=== PATIENT | female | born 1990 | race Caucasian/White ===

== ENCOUNTER 2021-06-21 12:43 | Outpatient (CLI) | payer BC, SELFPAY ==
--- NOTE | ~2021-06-21 | US_ITS ---
EXAMINATION: US OB /maternal detail EXAM DATE: 06/21/2021 13:16 INDICATION: anatomy. 2nd trimester. TECHNIQUE: Pelvic obstetrical transabdominal sonogram was performed by a technologist. There are mu ltiple grayscale and Doppler images available for interpretation. There are no earlier studies of th is gestation for comparison. FINDINGS: There is a single fetus identified in vertex presentation with a heart rate of 153 beats pe r minute. The placenta is located in the posterior position. There is no sonographic evidence of ret roplacental hemorrhage identified. There is subjectively expected amount of amniotic fluid. BIOMETRIC DATA: Biparietal diameter (BPD): 4.1 cm ----------------> 18 weeks 3 days. Head circumference (HC): 15.4 cm ----------------> 18 weeks 2 days. Abdominal circumference (AC): 13.3 cm ----------> 18 weeks 6 days. Femur length (FL): 2.6 cm --------------------------> 17 weeks 5 days. These measurements are concordant. HC/AC ratio is 1.15 (The 5th -- 95th percentile range is 1.08-1.27. Estimated weight is 234 g +/- 35 g. estimated gestational age based on measurements from this exam is 18 weeks 2 days, with an estimated date of delivery (SULEMAN-AUA) 11/20/2021. There is no cli nical gestation age or earlier ultrasound of this available to determine weight perce ntile. ANATOMIC SURVEY: The following anatomy is identified and is sonographically normal in appearance: Cerebral ventricles Cavum septum pellucidum Cerebellum Cisterna magna Nuchal fold CTL-spine Four-chamber heart Diaphragm Stomach Bladder Three-vessel cord Cord insertion Extremities Nose/lips The following anatomy was not well visualized and not evaluated: Cardiac outflow tracts, kidney s. IMPRESSION: 1. Single fetus in vertex presentation with heart rate 153 beats per minute. 2. Estimated gestational age by this ultrasound 18 weeks 2 days with SULEMAN 11/20. 3. Incomplete anatomic survey. Visualized anatomy normal. Reviewed, dictated and finalized at location B.
== END 2021-06-21 12:44 ==
PROVIDERS: Visit Provider Obstetrics & Gynecology Gynecology
DX: Z36.9 Encounter for antenatal screening, unspecified (principal); Z3A.18 18 weeks gestation of pregnancy
CPT/HCPCS: 76805

== ENCOUNTER → 2021-07-23 12:58 | Outpatient (CLI) | payer BC, MEDICAID, SELFPAY ==
--- NOTE | ~2021-07-23 | US_ITS ---
EXAMINATION: US OB limited DATE: 07/23/2021 13:22 INDICATION: Second trimester anatomic survey follow-up TECHNIQUE: Real-time ultrasound of the pelvis was performed. The interpreting radiologist was not pre sent for the study. COMPARISON: 06/21/2021 FINDINGS: There is a single living fetus in vertex presentation. The placenta is posterior and 5.1 cm from the internal cervical os. cardiac activity and movement are noted. heart rate is 149 beats per minute (bpm). The amniotic fluid index is subjectively normal. The heart and kidneys appear normal. IMPRESSION: 1. Single living fetus in vertex presentation. 2. heart and kidneys appear normal. Reviewed, dictated and finalized at location A.
== END ==
PROVIDERS: PCP Obstetrics & Gynecology Gynecology; Visit Provider Obstetrics & Gynecology Gynecology
DX: Z36.2 Encounter for other antenatal screening follow-up (principal)
CPT/HCPCS: 76815

== ENCOUNTER 2021-08-02 12:49 | Emergency (ER) | payer MEDICAID, SELFPAY ==
[2021-08-02 13:07] VITALS: BP 158/99; PULSE 98; RESP 16; TEMP 36.3; O2SAT 100
[2021-08-02 13:48] LABS: Appearance Urine Clear (Clear); Bilirubin Urine Negative (Negative); Blood Urine Negative (Negative); Color Urine Yellow (Yellow); Glucose Urine UA Negative (Negative); Ketones Urine Negative (Negative); Leukocyte Esterase Ur Negative LEU/UL (Negative); Nitrate Urine Negative (Negative); Protein Urine Negative (Negative); Specific Grav Ur >= 1.030 (1.001-1.035); Urobilinogen Urine 0.2 mg/dL (<2.0)
[2021-08-02 14:06] LABS: Add Urine Microscopic? NO
--- NOTE | 2021-08-02 15:33 | ED.BACK ---
HPI - Back Pain/Injury General Chief Complaint: Back Pain/Injury Stated Complaint: right side back pain- 24 weeks preg Time Seen by Provider: 08/02/21 15:21 Related Data Allergies Allergy/AdvReac Type Severity Reaction Status Date / Time No Known Allergies Allergy Unknown Verified 07/06/18 19:15 [facility] Family History Family History (Updated 10/20/15 @ 23:19 by DOCTOR UNKNOWN) Father Hypertension Mother Hypertension Grandparent Family history of elevated blood lipids Family history of malignant neoplasm of breast Diabetes mellitus Social History Social History Second hand tobacco smoke exposure: No Alcohol intake: never Course Vital Signs Vital signs: Vital Signs Temperature 36.3 C L 08/02/21 13:07 Pulse Rate 98 08/02/21 13:07 Respiratory Rate 16 08/02/21 13:07 Blood Pressure 158/99 H 08/02/21 13:07 Pulse Oximetry 100 08/02/21 13:07 Temperature 36.3 C L 08/02/21 13:07 Pulse Rate 98 08/02/21 13:07 Respiratory Rate 16 08/02/21 13:07 Blood Pressure 158/99 H 08/02/21 13:07 Pulse Oximetry 100 08/02/21 13:07 MDM - Back Pain/Injury Lab Data Labs: Lab Results 08/02/21 Range/Units 13:38 Urine Color Yellow (Yellow) Urine Appearance Clear (Clear) Urine pH 6.0 (5.0-9.0) Ur Specific [place] >= 1.030 (1.001-1.035) Urine Protein Negative (Negative) mg/dL Urine Glucose (UA) Negative (Negative) mg/dL Urine Ketones Negative (Negative) mg/dL Ur Blood (Man) Negative (Negative) Urine Nitrate Negative (Negative) Urine Bilirubin Negative (Negative) Urine Urobilinogen 0.2 (<2.0) mg/dL Leukocyte Esterase Rfl Negative (Negative) MARGO/UL UCG Bedside Result Positive Reference Range: Negative
== END 2021-08-02 15:50 | disposition home or self-care (01) ==
PROVIDERS: Emergency Provider Emergency Medicine; PCP Obstetrics & Gynecology Gynecology
DX: O26.892 Other specified pregnancy related conditions, second trimester (principal); M54.50 Low back pain, unspecified; Z3A.24 24 weeks gestation of pregnancy
CPT/HCPCS: 81003; 81025; 99283

== ENCOUNTER 2021-09-25 12:50 | Outpatient (CLI) | payer OTHER, SELFPAY ==
--- NOTE | ~2021-09-25 | US_ITS ---
EXAMINATION: US OB follow up DATE: 09/25/2021 13:26 INDICATION: Gestational size greater than dates. TECHNIQUE: Real-time transabdominal obstetric ultrasound. FINDINGS: Comparison to multiple prior studies sequentially, with oldest reviewed study dated 022. There is a single living fetus in vertex presentation. The placenta is posterior without placenta pr evia. SP is normal measuring 13.6 cm. cardiac activity and movement is noted with a heart rate of 135 beats per minute. T he amniotic fluid volume is normal. The following biometric data were obtained: BPD: 82mm corresponds to gestational age 33 weeks 1 days. Head circumference: 298mm corresponds to gestational age 33 weeks 0 days. Abdominal circumference: 302mm corresponds to gestational age 34 weeks 1 days. Femur length: 63mm corresponds to gestational age 32 weeks 4 days. Estimated weight: 2204grams +/- 331grams, 84.4% by Hadlock method.] IMPRESSION: 1. Single living intrauterine in vertex presentation with an estimated gestational age of 32 weeks 0 days by inititial ultrasound. 2. Normal placenta. Reviewed, dictated and finalized at location A. IMPRESSION: 1. Single living intrauterine in vertex presentation with an estimat ed gestational age of 32 weeks 0 days by inititial ultrasound. 2. Normal placenta.
== END 2021-09-25 12:51 | disposition home or self-care (01) ==
PROVIDERS: PCP Obstetrics & Gynecology Gynecology; Visit Provider Advanced Practice Midwife
DX: O36.63X0 Maternal care for excessive fetal growth, third trimester, not applicable or unspecified (principal); E03.9 Hypothyroidism, unspecified; Z3A.32 32 weeks gestation of pregnancy
CPT/HCPCS: 76816

== ENCOUNTER 2021-10-25 12:55 | Outpatient (CLI) | payer OTHER, SELFPAY ==
--- NOTE | ~2021-10-25 | US_ITS ---
EXAMINATION: US OB follow up DATE: 10/25/2021 13:41 INDICATION: Estimated size greater than expected for estimated gestational age. TECHNIQUE: Real-time ultrasound of the pelvis was performed. The interpreting radiologist was not pre sent for the study. COMPARISON: None. FINDINGS: There is a single living fetus in vertex presentation. The placenta is posterior fundal. heart rate is 143 beats per minute (bpm). The amniotic fluid index is 9.1 cm, which is normal (5th%-95%: 7.7-24.9 cm at 36 weeks estimated gestational age) The following biometric data were obtained: BPD: 9.3 cm -> 37 weeks 6 days Head circumference: 35.6 cm -> 37 weeks 0 days Abdominal circumference: 33.6 cm -> 37 weeks 4 days Femur length: 7.1 cm -> 36 weeks 1 days These measurements are concordant. Head circumference to abdominal circumference ratio: 0.97 (normal range 0.92-1.05). Estimated weight: 3137 g (+/-) 471 g or 6 lbs. 15 oz. (+/-) 1 lbs. 1 oz. IMPRESSION: 1. Single living fetus in vertex presentation with heart rate of 143 bpm. 2. Normal amniotic fluid index of 9.1 cm. 3. Estimated weight is 79th percentile by Hadlock criteria when 11/21/2021 is used as the estima amber date of delivery (SULEMAN). Please correlate with clinical information or earlier ultrasounds for mos t accurate SULEMAN. Reviewed, dictated and finalized at location A. IMPRESSION: 1. Single living fetus in vertex presentation with heart rate of 143 bpm. 2. Normal amniotic fluid index of 9.1 cm. 3. Estimated weight is 79th percentile by Hadlock criteria when 11/21/2021 is used as the estimated date of delivery (SULEMAN). Please correlate with clinica l information or earlier ultrasounds for most accurate SULEMAN.
== END 2021-10-25 12:56 | disposition home or self-care (01) ==
PROVIDERS: PCP Obstetrics & Gynecology Gynecology; Visit Provider Obstetrics & Gynecology Gynecology
DX: O24.414 Gestational diabetes mellitus in pregnancy, insulin controlled (principal); Z79.4 Long term (current) use of insulin; Z3A.00 Weeks of gestation of pregnancy not specified
CPT/HCPCS: 76816

== ENCOUNTER 2021-10-31 06:02 | Inpatient (IN) | payer OTHER, SELFPAY ==
[2021-10-31] VITALS (176 sets, daily range): BP systolic 105–154; BP diastolic 58–94; PULSE 25–281; TEMP 36.2–38.3; O2SAT 80–100; BMI 40.6
[2021-10-31] MEDS: LACTATED RINGERS 1,000 ML 125 ML IV CONT ×2 (07:37→11:30)
[2021-10-31] MEDS: OXYTOCIN 30 UNITS/NS 500 ML 30 UNITS/500 ML BAG IV CONT (07:38)
[2021-10-31 07:41] LABS: Basophils Percent Auto 0.2 % (0.2-1.2); Eosinophils Absolute Auto 0.1 K/mm3 (0-0.3); Eosinophils Percent Auto 0.6 % (0-4.4); Hematocrit 36.7 % (37.0-47.0); Hemoglobin 12.4 g/dL (12.0-15.0); Immature Granulocyte Absolute 0.06 K/mm3 (0.00-0.031); Immature Granulocyte Percent A 0.5 % (0-0.5); Lymphocytes Absolute Auto 2.54 K/mm3 (0.9-3.2); Lymphocytes Percent Auto 19.4 % (18.3-44.2); Mean Corpuscular HGB Conc 33.8 g/dl (32-36); Mean Corpuscular Volume 88.6 fl (80-100); Mean Platelet Volume 10.2 fl (7.4-10.4); Monocytes Absolute Auto 0.8 K/mm3 (0.1-0.6); Monocytes Percent Auto 5.9 % (2.6-8.5); Neutrophils Absolute Auto 9.6 K/mm3 (1.3-6.7); Neutrophils Percent Auto 73.4 % (45.5-73.1); Platelet Count Result 256 k/mm3 (150-375); Red Blood Count 4.14 M/mm3 (4.2-5.4); Red Cell Distribution Width 13.2 % (11.5-14.5); White Blood Count 13.1 K/mm3 (4.5-10.0)
--- NOTE | 2021-10-31 07:46 | WPDOBADMIT ---
Obstetrics - Admit Note Admission Note: record reviewed. No pertinent additions to the history and/or any subsequent changes in the physical findings that are not consistent with the expected course of the were found. Additions to the history and/or subsequent changes in the physical findings follow. NST on admit is reactive.
--- NOTE | 2021-10-31 07:47 | PM.OBPNLAB ---
Pain Control Date/time seen: 10/31/21 07:3 Comments: Denies pain. Pelvic Exam Dilation (cm): 3 Effacement (%): 60 station: -3 Amniotic membrane status: Ruptured Contractions Monitor mode: External Contraction pattern: Irregular Contraction phase: Resting Status status: Category l Assessment and Plan Assessment: induction ongoing Plan: continuous present management Comments: Discussed plan of care with patient and her partner. Discussed methods of induction including oxytocin administration and amniotomy. Mel is agreeable to both interventions. Amniotomy performed with moderate amount of clear amniotic fluid returned. Plan to start Pitocin and increase as needed to achieve adequate contraction pattern. She plans an epidural for pain control.
--- NOTE | 2021-10-31 07:50 | PM.IMHP ---
H&P: HPI History of Present Illness Date/Time: 10/31/21 07:50 Chief Complaint: IOL Review of Systems Review of Systems: All systems reviewed & are unremarkable except as noted in HPI and below Constitutional: Constitutional: Reports no additional constitutional complaints PMFSH Family History Family History Father Hypertension Mother Hypertension Grandparent Family history of elevated blood lipids Family history of malignant neoplasm of breast Diabetes mellitus Social History Social History Years smoked: 15 Smoking status: Former smoker Tobacco type: cigarettes Second hand tobacco smoke exposure: No Alcohol intake: never Substance use: never Spiritual care concerns: No Comments IVF Hx ectopic x 4. Bilateral salpingectomy. 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 Plan PP Colposcopy Hx Chlamydia O+/NR/Hep B Neg/RI/Hep C neg/HIV neg/ GBS neg Family History Father Hypertension Mother Hypertension Grandparent Family history of elevated blood lipids Family history of malignant neoplasm of breast Diabetes mellitus Social History Years smoked: 15 Smoking status: Former smoker Tobacco type: cigarettes Second hand tobacco smoke exposure: No Alcohol intake: never Substance use: never Spiritual care concerns: No Female Reproductive History Menstrual Total pregnancies: 6 Premature: 0 Past History Past medical history: gHTN GDMA2. history: Hx Preeclampsia in G1. Past surgical history: Ectopic x 4. Bilateral salpingectomy. Meds Home Medications and Allergies Home Medications Medication Instructions Recorded Confirmed Type Humulin U Insulin 81 unit subcut HS Gestational 10/25/21 10/25/21 History Diabetes levothyroxine 75 mcg tablet 25 mcg PO DAILY 10/25/21 10/31/21 History prenat.vits,lea,[id number] 1 tablet PO DAILY 10/25/21 10/25/21 History Allergies Allergy/AdvReac Type Severity Reaction Status Date / Time No Known Allergies Allergy Unknown Verified 07/06/18 19:15 Vital Signs Vital Signs - 24 hr 10/31/21 07:06 10/31/21 07:47 Pulse Rate 84 Blood Pressure 144/84 H Oxygen Delivery Room Air Exam Const: General: comfortable and no acute distress Eyes: General: appearance normal, both eyes and all related structures Resp: Effort & Inspection: normal respiratory effort Auscultation: clear to auscultation bilaterally Cardio: Rate: regular rate Rhythm: regular rhythm GI: GI Palp: Yes Soft to palpation : General: Yes bladder normal to palpation External Female Exam: normal external appearance Skin: General skin exam: normal color Neuro: General: gait normal Extrem: General: normal to inspection Psych: Mental Status: mental status grossly normal Affect: normal affect Assessment and Plan Assessment and plan (1) : Code(s): Z34.90 - Encounter for supervision of normal , unspecified, unspecified trimester Status: Acute (2) Gestational hypertension: Code(s): O13.9 - Gestational [-induced] hypertension without significant proteinuria, unspecified trimester Status: Acute (3) Gestational diabetes mellitus (GDM) affecting : Code(s): O24.419 - Gestational diabetes mellitus in , unspecified control Status: Acute Plan gHTN GDMA2. IUP at 37 weeks. Induction of labor.
[2021-10-31 07:53] LABS: Alanine Aminotransferase 14 U/L (6-35); Albumin Level 3.1 g/dL (3.5-5.1); Alkaline Phosphatase 100 U/L (38-126); Anion Gap 10 mmol/L (8-16); Aspartate Amino Transferase 19 U/L (14-36); Bilirubin,Total 0.2 mg/dL (0.2-1.3); Blood Urea Nitrogen 9 mg/dL (7-17); Calcium 8.6 mg/dL (8.4-10.2); Carbon Dioxide 21 mmol/L (22-30); Chloride 103 mmol/L (98-107); Estimated CRCL calculation 116 ml/min; Estimated Glomerular Filt Rate > 60; Glucose 148 mg/dL (65-110); Potassium 3.6 mmol/L (3.4-5.0); Sodium 134 mmol/L (137-145)
[2021-10-31 08:00] LABS: Amphetamine Screen Urine Negative (Negative); Barbiturate Screen Urine Negative (Negative); Benzodiazepines Screen Urine Negative (Negative); Cannabinoid Screen Urine Positive (Negative); Cocaine Screen Urine Negative (Negative); Methadone Screen Urine Negative (Negative); Opiate Screen Urine Negative (Negative); Phencyclidine Screen Urine Negative (Negative)
[2021-10-31 08:18] LABS: Uric Acid 6.2 mg/dL (2.5-7.5)
--- NOTE | 2021-10-31 12:00 | WPDANESEPPF ---
Anes - Initial Pre Proc Eval Procedure: labor epidural Date/Time: 10/31/21 12:00 Surgeon: Susan Velarde MD Pre Op Diagnosis: labor pain Pre Op Diagnosis: iol Patient Data Age: 30 Gender: F Height: 1.6 m Weight: 104 kg Last Vital Signs Pulse 79 10/31/21 11:59 BP 134/67 10/31/21 11:59 Pulse Ox 100 10/31/21 11:55 O2 Del Method Room Air 10/31/21 07:06 Allergies Allergy/AdvReac Type Severity Reaction Status Date / Time No Known Allergies Allergy Unknown Verified 07/06/18 19:15 Home Medications Medication Instructions Recorded Confirmed Type Humulin U Insulin 81 unit subcut HS Gestational 10/25/21 10/25/21 History Diabetes levothyroxine 75 mcg tablet 25 mcg PO DAILY 10/25/21 10/31/21 History prenat.vits,lea,[id number] 1 tablet PO DAILY 10/25/21 10/25/21 History Laboratory Tests 10/31/21 10/31/21 10/31/21 07:33 07:33 07:33 WBC 13.1 K/mm3 H K/mm3 (4.5-10.0) RBC 4.14 M/mm3 L M/mm3 (4.2-5.4) Hgb 12.4 g/dL g/dL (12.0-15.0) Hct 36.7 % L % (37.0-47.0) MCV 88.6 fl fl (80-100) MCH 30.0 pg pg (26-34) MCHC 33.8 g/dl g/dl (32-36) RDW 13.2 % % (11.5-14.5) Plt Count 256 k/mm3 k/mm3 (150-375) MPV 10.2 fl fl (7.4-10.4) Immature Gran % (Auto) 0.5 % % (0-0.5) Neut % (Auto) 73.4 % H % (45.5-73.1) Lymph % (Auto) 19.4 % % (18.3-44.2) [place] % (Auto) 5.9 % % (2.6-8.5) Eos % (Auto) 0.6 % % (0-4.4) Baso % (Auto) 0.2 % % (0.2-1.2) Lymph # (Auto) 2.54 K/mm3 K/mm3 (0.9-3.2) [place] # (Auto) 0.8 K/mm3 H K/mm3 (0.1-0.6) Eos # (Auto) 0.1 K/mm3 K/mm3 (0-0.3) Baso # (Auto) 0.0 K/mm3 K/mm3 (0.0-0.1) Abs Immat Gran (auto) 0.06 K/mm3 H K/mm3 (0.00-0.031) Absolute Neuts (auto) 9.6 K/mm3 H K/mm3 (1.3-6.7) Absolute Nucleated RBC 0.0 K/mm3 K/mm3 (0.0-0.012) Nucleated RBC % 0.0 % % (0.0-0.2) Sodium Potassium Chloride Carbon Dioxide Anion Gap BUN Creatinine Estim Creat Clear Calc Estimated GFR Glucose Uric Acid Calcium Total Bilirubin AST ALT Alkaline Phosphatase Total Protein Albumin Urine Opiates Screen Urine Methadone Screen Ur Barbiturates Screen Ur Phencyclidine Scrn Ur Amphetamine Screen U Benzodiazepines Scrn Urine Cocaine Screen U Cannabinoids Screen RPR Pending Blood Type A Positive Antibody Screen Negative 10/31/21 10/31/21 10/31/21 07:33 07:33 07:33 WBC RBC Hgb Hct MCV MCH MCHC RDW Plt Count MPV Immature Gran % (Auto) Neut % (Auto) Lymph % (Auto) [place] % (Auto) Eos % (Auto) Baso % (Auto) Lymph # (Auto) [place] # (Auto) Eos # (Auto) Baso # (Auto) Abs Immat Gran (auto) Absolute Neuts (auto) Absolute Nucleated RBC Nucleated RBC % Sodium 134 mmol/L L mmol/L (137-145) Potassium 3.6 mmol/L mmol/L (3.4-5.0) Chloride 103 mmol/L mmol/L (98-107) Carbon Dioxide 21 mmol/L L mmol/L (22-30) Anion Gap 10 mmol/L mmol/L (8-16) BUN 9 mg/dL mg/dL (7-17) Creatinine 0.70 mg/dL mg/dL (0.7-1.0) Estim Creat Clear Calc 116 ml/min ml/min Estimated GFR > 60 (59 - ) Glucose 148 mg/dL H mg/dL
[2021-10-31 12:11] LABS: Rapid Plasma Reagin Non-Reactive (NonReactive)
[2021-10-31 12:42] LABS: Glucose Point of Care 80 mg/dl (65-105)
[2021-10-31 15:18] LABS: Glucose Point of Care 83 mg/dl (65-105)
[2021-10-31] MEDS: ONDANSETRON INJ 4 MG/2 ML VIAL IV PUSH (16:19)
--- NOTE | 2021-10-31 17:26 | PM.OBPNLAB ---
Pain Control Date/time seen: 10/31/21 17:20 Pain control: tolerating well and epidural Pelvic Exam Dilation (cm): 7 Effacement (%): 90 station: -2 Amniotic membrane status: Ruptured Contractions Monitor mode: Internal Contraction frequency: 3 (2-3) Contraction duration: 60 (60-90) Contraction pattern: Regular Contraction phase: Resting Status status: Category l Assessment and Plan Assessment: induction ongoing Plan: continuous present management Comments: IUPC flushed and zeroed but resting tone remained >20. Uterine resting tone palpates soft. RN having difficulty tracing FHTs in upright positions. Discussed recommendation to replace IUPC and place FSE. Pt agrees. IUPC removed and replaced. New IUPC resting tone WNL. FSE placed. Pt repositioned to high fowlers. Recommend frequent repositioning to facilitate optimal position. Plan to increase oxytocin PRN to achieve adequate contraction pattern. Anticipate vaginal .
[2021-10-31 17:33] LABS: Glucose Point of Care 90 mg/dl (65-105)
[2021-10-31 20:02] LABS: Glucose Point of Care 78 mg/dl (65-105)
--- NOTE | 2021-10-31 21:59 | PM.OBPRVD ---
OB - Delivery Note Procedure Delivery date: 10/31/21 Procedure: Vaginal . Events: Gestational Diabetes (GDMA2.) and Gestational Hypertension Induction method: AROM and Per Pitocin Protocol Delivery monitor: External FHT, External Uterine, Internal FHT and Internal Uterine Route of delivery: Episiotomy description: None Laceration Description: None Specimen: Yes Quantitative Blood Loss (ml): 450 Anesthesia type: Epidural Disposition: Floor
[2021-10-31] MEDS: OXYTOCIN 30 UNITS/NS 500 ML 30 UNITS/500 ML BAG 125 UNITS IV CONT (22:08)
--- NOTE | 2021-10-31 22:12 | PM.OBPRVD ---
OB - Delivery Note Procedure Delivery date: 10/31/21 Procedure: Vaginal Events: Gestational Diabetes (GDMA2.) and Gestational Hypertension Induction method: AROM and Per Pitocin Protocol Delivery monitor: External FHT, External Uterine, Internal FHT and Internal Uterine Route of delivery: Laceration Description: None Specimen: Yes Quantitative Blood Loss (ml): 450 Anesthesia type: Epidural Disposition: Floor Complications: Shoulder Dystocia Narrative: Mel progressed to complete dilation and began pushing with contractions. CNM to hospital and patient continued pushing. She made good progress and there was steady descent. The head came to a crown. The entire head delivered with 4-5 separate maternal pushes in the MIREILLE position. There was no restitution noted at this point. A loose nuchal cord and a shoulder dystocia were identified. The patient was assisted into Cristian position and maternal expulsive efforts were resumed but not successful. Suprapubic pressure was called for and applied towards the maternal left hip. There was slight descent of the fetus with this maneuver. After 30 seconds, CNM attempted to grasp the posterior (right) arm. CNM unable to palpate the arm below the mid humerus. Grasped the right axilla and gentle traction applied. The posterior shoulder then had good descent and the rotated in a clockwise manner and delivered easily. The was placed on the maternal abdomen and was dried and stimulated. The cord was doubly clamped and cut and the was taken to the warmer for further care. Baby Date of : 10/31/21 Time of : 21:35 Weeks of gestation at delivery: 37 gender: Male Weight (pounds): 7 Weight (ounces): 9 presentation: vertex position: Right Occiput Anterior Placenta delivery description: Spontaneous Cord Vessel Description: 3 Vessels and Clamped/Cut score one minute: 4 score five minutes: 8
--- NOTE | 2021-10-31 22:33 | PM.DS ---
DS: Admitting Diagnosis Discharge Date 11/02/21 Admitting Diagnosis IUP at 37 weeks. gHTN GDMA2 Hypothyroidism DS: Discharge Diagnosis Discharge Diagnosis Plan s/p Vaginal . gHTN GDMA2 / Breast pumping DS: Summary Hospital Course Reason for hospitalization: Childbirth Hospital Course: Uncomplicated. Status at Discharge Overall status at discharge: patient is progressing back to baseline Time Spent with Patient Time attestation: Total time spent providing and/or coordinating discharge services: Exam Const: General: no acute distress Resp: Effort & Inspection: normal respiratory effort Cardio: Rate: regular rate Rhythm: regular rhythm : External Female Exam: normal external appearance Skin: General skin exam: normal color Neuro: General: gait normal Extrem: General: normal to inspection Psych: Mental Status: mental status grossly normal Affect: normal affect DS: Data Data Completed and Pending Labs on day of discharge: Labs from last 24 hours 10/31/21 10/31/21 10/31/21 19:58 17:30 15:13 WBC RBC Hgb Hct MCV MCH MCHC RDW Plt Count MPV Immature Gran % (Auto) Neut % (Auto) Lymph % (Auto) [place] % (Auto) Eos % (Auto) Baso % (Auto) Lymph # (Auto) [place] # (Auto) Eos # (Auto) Baso # (Auto) Abs Immat Gran (auto) Absolute Neuts (auto) Absolute Nucleated RBC Nucleated RBC % Sodium Potassium Chloride Carbon Dioxide Anion Gap BUN Creatinine Estim Creat Clear Calc Estimated GFR Glucose POC Capillary Glucose 78 90 83 Uric Acid Calcium Total Bilirubin AST ALT Alkaline Phosphatase Total Protein Albumin Urine Opiates Screen Urine Methadone Screen Ur Barbiturates Screen Ur Phencyclidine Scrn Ur Amphetamine Screen U Benzodiazepines Scrn Urine Cocaine Screen U Cannabinoids Screen RPR Blood Type Antibody Screen 10/31/21 10/31/21 10/31/21 12:37 07:33 07:33 WBC RBC Hgb Hct MCV MCH MCHC RDW Plt Count MPV Immature Gran % (Auto) Neut % (Auto) Lymph % (Auto) [place] % (Auto) Eos % (Auto) Baso % (Auto) Lymph # (Auto) [place] # (Auto) Eos # (Auto) Baso # (Auto) Abs Immat Gran (auto) Absolute Neuts (auto) Absolute Nucleated RBC Nucleated RBC % Sodium Potassium Chloride Carbon Dioxide Anion Gap BUN Creatinine Estim Creat Clear Calc Estimated GFR Glucose POC Capillary Glucose 80 Uric Acid 6.2 Calcium Total Bilirubin AST ALT Alkaline Phosphatase Total Protein Albumin Urine Opiates Screen Negative Urine Methadone Screen Negative Ur Barbiturates Screen Negative Ur Phencyclidine Scrn Negative Ur Amphetamine Screen Negative U Benzodiazepines Scrn Negative Urine Cocaine Screen Negative U Cannabinoids Screen Positive A RPR Blood Type Antibody Screen 10/31/21 10/31/21 10/31/21 07:33 07:33 07:33 WBC RBC Hgb Hct MCV MCH MCHC RDW Plt Count MPV Immature Gran % (Auto) Neut % (Auto) Lymph % (Auto) [place] % (Auto) Eos % (Auto) Baso % (Auto) Lymph # (Auto) [place] # (Auto) Eos # (Auto) Baso # (Auto) Abs Immat Gran (auto) Absolute Neuts (auto) Absolute Nucleated RBC Nucleated RBC % Sodium 134 L Potassium 3.6 Chloride 103 Carbon Dioxide 21 L Anion Gap 10 BUN 9 Creatinine 0.70 Estim Creat Clear Calc 116 Estimated GFR > 60 Glucose 148 H POC Capillary Glucose Uric Acid Calcium 8.6 Total Bilirubin 0.2 AST 19 ALT 14 Alkaline Phosphatase 100 Total Protein 6.0 L Albumin 3.1 L Urine Opiates Screen Urine Methadone Screen Ur Barbiturates Screen Ur Phencyclidine Scrn Ur Amphetam
[2021-10-31] MEDS: IBUPROFEN 600 MG TABLET PO (22:49)
[2021-11-01 00:01] VITALS: BP 116/69; PULSE 95
[2021-11-01 05:32] LABS: Hematocrit 32.5 % (37.0-47.0)
[2021-11-01 05:47] VITALS: BP 123/79; PULSE 90; RESP 18; TEMP 36.4; O2SAT 97
--- NOTE | 2021-11-01 07:40 | PM.OBPNVD ---
OB - PN: Subj Subjective Date/time seen: 11/01/21 07:40 Patient comments: no complaints and pain well controlled baby status: doing well OB - PN: Obj Data Labs CBC & Chem 7: 11/01/21 03:48 10/31/21 07:33 Labs: Laboratory Results - last 24 hr 10/31/21 10/31/21 10/31/21 07:33 07:33 07:33 WBC 13.1 H RBC 4.14 L Hgb 12.4 Hct 36.7 L MCV 88.6 MCH 30.0 MCHC 33.8 RDW 13.2 Plt Count 256 MPV 10.2 Immature Gran % (Auto) 0.5 Neut % (Auto) 73.4 H Lymph % (Auto) 19.4 Durham % (Auto) 5.9 Eos % (Auto) 0.6 Baso % (Auto) 0.2 Lymph # (Auto) 2.54 [place] # (Auto) 0.8 H Eos # (Auto) 0.1 Baso # (Auto) 0.0 Abs Immat Gran (auto) 0.06 H Absolute Neuts (auto) 9.6 H Absolute Nucleated RBC 0.0 Nucleated RBC % 0.0 Sodium Potassium Chloride Carbon Dioxide Anion Gap BUN Creatinine Estim Creat Clear Calc Estimated GFR Glucose POC Capillary Glucose Uric Acid Calcium Total Bilirubin AST ALT Alkaline Phosphatase Total Protein Albumin Urine Opiates Screen Urine Methadone Screen Ur Barbiturates Screen Ur Phencyclidine Scrn Ur Amphetamine Screen U Benzodiazepines Scrn Urine Cocaine Screen U Cannabinoids Screen RPR Non-reactive Blood Type A Positive Antibody Screen Negative 10/31/21 10/31/21 10/31/21 07:33 07:33 07:33 WBC RBC Hgb Hct MCV MCH MCHC RDW Plt Count MPV Immature Gran % (Auto) Neut % (Auto) Lymph % (Auto) Durham % (Auto) Eos % (Auto) Baso % (Auto) Lymph # (Auto) Durham # (Auto) Eos # (Auto) Baso # (Auto) Abs Immat Gran (auto) Absolute Neuts (auto) Absolute Nucleated RBC Nucleated RBC % Sodium 134 L Potassium 3.6 Chloride 103 Carbon Dioxide 21 L Anion Gap 10 BUN 9 Creatinine 0.70 Estim Creat Clear Calc 116 Estimated GFR > 60 Glucose 148 H POC Capillary Glucose Uric Acid 6.2 Calcium 8.6 Total Bilirubin 0.2 AST 19 ALT 14 Alkaline Phosphatase 100 Total Protein 6.0 L Albumin 3.1 L Urine Opiates Screen Negative Urine Methadone Screen Negative Ur Barbiturates Screen Negative Ur Phencyclidine Scrn Negative Ur Amphetamine Screen Negative U Benzodiazepines Scrn Negative Urine Cocaine Screen Negative U Cannabinoids Screen Positive A RPR Blood Type Antibody Screen 10/31/21 10/31/21 10/31/21 12:37 15:13 17:30 WBC RBC Hgb Hct MCV MCH MCHC RDW Plt Count MPV Immature Gran % (Auto) Neut % (Auto) Lymph % (Auto) Durham % (Auto) Eos % (Auto) Baso % (Auto) Lymph # (Auto) [place] # (Auto) Eos # (Auto) Baso # (Auto) Abs Immat Gran (auto) Absolute Neuts (auto) Absolute Nucleated RBC Nucleated RBC % Sodium Potassium Chloride Carbon Dioxide Anion Gap BUN Creatinine Estim Creat Clear Calc Estimated GFR Glucose POC Capillary Glucose 80 83 90 Uric Acid Calcium Total Bilirubin AST ALT Alkaline Phosphatase Total Protein Albumin Urine Opiates Screen Urine Methadone Screen Ur Barbiturates Screen Ur Phencyclidine Scrn Ur Amphetamine Screen U Benzodiazepines Scrn Urine Cocaine Screen U Cannabinoids Screen RPR Blood Type Antibody Screen 10/31/21 11/01/21 19:58 03:48 WBC RBC Hgb 11.0 L Hct 32.5 L MCV MCH MCHC RDW Plt Count MPV Immature Gran % (Auto) Neut % (Auto) Lymph % (Auto) Durham % (Auto) Eos % (Auto) Baso % (Auto) Lymph # (Auto) [place] # (Auto) Eos # (Auto) Baso # (Auto) Abs Immat Gran (auto) Absolute Neuts (auto) Absolute Nucleated RBC Nucleated RBC % Sodium Potassium Chloride Carbon Dioxide Anion G
[2021-11-01 08:55] VITALS: BP 105/72; PULSE 83; RESP 16; TEMP 36.2; O2SAT 99
[2021-11-01] MEDS: DOCUSATE SODIUM 100 MG CAPSULE PO ×2 (08:55→17:42)
[2021-11-01] MEDS: LEVOTHYROXINE SODIUM 25 MCG TABLET PO (08:55)
[2021-11-01] MEDS: MULTIVIT/MIN/PREN/FOL AC/IRON TABLET 1 TAB PO (08:55)
[2021-11-01] MEDS: IBUPROFEN 600 MG TABLET PO ×2 (12:20→23:48)
--- NOTE | 2021-11-01 12:40 | PC.NURSE ---
[phone] RN reported this morning that infant had not fed since , MCP performed circumcision on 37 EGA, the plan was for the family to go home today, and infant had been in level 2 nursery until 0300, then brought to mother. Introductions were made, then consulted with patient to assess needs related to . Primary RN is present in the room with family. Mother had been educated on needing to be supplemented so mother pumped her breast and collected 2mls of human milk to bottle feed her . Resources provided for inpatient and outpatient services using a resource guide and mom/baby guide. Mother voiced understanding of information and will call if there is a request for assistance. Reported to primary RN.
[2021-11-01 13:05] VITALS: BP 121/53; PULSE 98; RESP 18; TEMP 37; O2SAT 100
[2021-11-01 16:15] VITALS: BP 128/87; PULSE 91; RESP 16; TEMP 36.6; O2SAT 99
[2021-11-01 19:57] VITALS: BP 127/80; PULSE 90; RESP 18; TEMP 36.6; O2SAT 100
[2021-11-02 00:19] VITALS: BP 122/71
[2021-11-02 05:15] VITALS: BP 116/73
[2021-11-02] MEDS: LEVOTHYROXINE SODIUM 25 MCG TABLET PO (07:11)
[2021-11-02 07:15] LABS: Glucose Point of Care 101 mg/dl (65-105)
--- NOTE | 2021-11-02 07:56 | PM.OBPNVD ---
OB - PN: Subj Subjective Date/time seen: 11/02/21 07:56 Interval history: Mel is resting in bed. Has made several attempts at . Minimal pain. Small lochia. Infant in nursery under bili lights. Patient comments: no complaints [place] baby status: other (Not well. ) OB - PN: Obj Data Labs CBC & Chem 7: 11/01/21 03:48 10/31/21 07:33 Labs: Laboratory Results - last 24 hr 11/02/21 07:10 POC Capillary Glucose 101 OB - PN A/P Plan day: 2 Plan: discharge home Time Spent With Patient Time: Total time spent is greater than 50% in coordination of care (as documented) at patient's floor/unit and/or counseling patient: Review of Systems Review of Systems: All systems reviewed & are unremarkable except as noted in HPI and below Exam Narrative: Alert and oriented. Mood is pleasant and cooperative. Urinating without difficulty. Denies passing any large clots. No perineal edema. Const: General: no acute distress Orientation/consciousness: patient oriented x3 Limitations: no limitations Resp: Effort & Inspection: normal respiratory effort Auscultation: clear to auscultation bilaterally Cardio: Rate: regular rate GI: Inspection: normal to inspection Neuro: General: patient oriented x3 Extrem: General: normal to inspection Psych: Appearance: grossly normal Mental Status: mental status grossly normal Affect: normal affect Thought process: Normal thought process present
[2021-11-02 08:25] VITALS: BP 131/77; PULSE 77; RESP 16; TEMP 36.3; O2SAT 100
[2021-11-02] MEDS: LANOLIN (LANSINOH) 7.5 GM CREAM 1 APPLIC TOPICAL (08:39)
[2021-11-02] MEDS: IBUPROFEN 600 MG TABLET PO (08:39)
[2021-11-02] MEDS: MULTIVIT/MIN/PREN/FOL AC/IRON TABLET 1 TAB PO (08:39)
--- NOTE | 2021-11-02 11:12 | PC.NURSE ---
0828 - 37 EGA infant is in the nursery with RN under phototherapy. was RN fed the bottle close to 0800.
[2021-11-02 11:58] VITALS: BP 116/73; PULSE 75; RESP 18; TEMP 36.4; O2SAT 99
[2021-11-02 15:30] VITALS: BP 131/86
--- NOTE | 2021-11-02 16:35 | PC.NURSE ---
Patient viewed the discharge video Mother & Baby Care, The First Two Weeks . Patient was given the opportunity and encouraged to ask questions. Patient verbalized understanding of information shared and has been given the mother/baby guide for home reference.
[2021-11-05 10:29] VITALS: BP 119/68; PULSE 80; RESP 20; TEMP 36.6; O2SAT 98
== END 2021-11-02 18:45 | disposition home or self-care (01) | DRG 560 ==
LOC: ANHLDR 22:39 → ANHOB2 11-01 10:06 → ANHLDR 11-05 10:49
PROVIDERS: Obstetrics & Gynecology Gynecology; Admitting Provider Advanced Practice Midwife; Visit Provider Advanced Practice Midwife
DX: O13.4 Gestational [pregnancy-induced] hypertension without significant proteinuria, complicating childbirth (principal); O69.81X0 Labor and delivery complicated by cord around neck, without compression, not applicable or unspecified; O24.429 Gestational diabetes mellitus in childbirth, unspecified control; O66.0 Obstructed labor due to shoulder dystocia; O99.284 Endocrine, nutritional and metabolic diseases complicating childbirth; E03.9 Hypothyroidism, unspecified; Z3A.37 37 weeks gestation of pregnancy; Z87.891 Personal history of nicotine dependence; Z37.0 Single live birth
CPT/HCPCS: 36415; 80053; 80307; 82948; 84550; 85014; 85018; 85025; 86592; 86850; 86900; 86901; 88307; A9270; J2405; J2590; J2795; J7120

== ENCOUNTER 2024-05-11 14:54 | Outpatient (CLI) | payer MEDICAID, SELFPAY ==
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
--- OUTSIDE RECORDS SUMMARY | 2024-05-11 15:01 | XMS_ITS | Referral Summary ---
Author Organization [facility] [employer] Address [address] [place] [address] Care Team Providers Care Assistant Casino Shift Manager Name Role Phone Unavailable Primary Care Provider Unavailabl e Source Comments [facility],non-owned Affiliates and Associated Physician Practices is amultiple site organization consisting of ambulatory clinics and hospital sitesin [place], [place], [place] and [place]. This disclosure is being madepursuant to the Care Everywhere program and may not contain all information available regarding this patient. Last updated 17.[facility] Allergies No known active allergies Medications * Be aware that medications may not be up to date on this document. Alwaysverify current medications with the patient. Medication Sig Dispensed Refills Start Date End Date Status oxyCODONE-acetaminophe n (PERCOCET) 5-325 MG tablet Take 1 Tab by mouth every 4 hours as needed for Pain. 20 Tab 0 10/27/2013 Active Social History Tobacco Use Types Packs/Day Years [...] Mass Index 24.8 10/27/2013 5:19 AM CDT Plan of Treatment Not on file Administered Medications
--- OUTSIDE RECORDS SUMMARY | 2024-05-11 15:01 | XMS_ITS | Clinical Summary ---
Author Organization [facility] [employer] Address [address] [place] [address] Care Team Providers Care Orthopedically Impaired Teacher Name Role Phone Unavailable Primary Care Provider Unavailabl e Source Comments [facility] [employer],non-owned Affiliates and Associated Physician Practices is amultiple site organization consisting of ambulatory clinics and hospital sitesin [place], [place] and [place]. This disclosure is being madepursuant to the Care Everywhere program and may not contain all information available regarding this patient. Last updated 17.[facility] [employer] Allergies No known active allergies Medications * [...] 10/27/2013 5:19 AM CDT Plan of Treatment Health Maintenance Due Date Last Done Comments PAP SMEAR 1989 HIV SCREENING 2004 HEPATITIS C SCREENING 12/24/2007 DTAP/TDAP/TD VACCINES (1 - Tdap) 2008 HEPATITIS B VACCINE (1 of 3 - 19+ 3-dose series) 2008 PNEUMOCOCCAL VACCINE (1 of 2 - PCV) 2008 COVID-19 VACCINE (1 - 2023-2 5 season) 2023 INFLUENZA VACCINE (#1) 2023 DEPRESSION SCREENING 03/24/2024 ZOSTER VACCINE (1 of 2) 12/29/2039 HIB VACCINE Aged Out No longer eligi ble based on patient's age to complete this topic HPV VACCINE Aged Out No longer eligi ble based on patient's age to complete this topic MENINGOCOCCAL (Group B) VACCINE Aged Out No longer eligible based on patient's age to complete this topic MENINGOCOCCAL VACCINE Aged Out No omar kimberlee eligible based on patient's age to complete this topic
--- OUTSIDE RECORDS SUMMARY | 2024-05-11 15:01 | XMS_ITS | Encounter Summary ---
Author Organization [facility] Address [address] [place] [address] Care Team Providers Care Test Boring Crew Chief Name Role Phone Unavailable Primary Care Provider Unavailabl e Encounter Details Date Type Department Care Team (Late st Contact Info) Description 02/14/2021 Lab Requisition [facility] [address] [place] [address] Social History Tobacco Use Types Packs/Day Years Used Date Smoking Tobacco: Every Day Alcohol Use Standard Drinks/Week Comments No 0 (1 standard drink = 0.6 oz pur e alcohol) Sex and Gender Information Value Date Recorded Sex Assigned at Not on file Gender Identity Not on file Sexual Orientation Not on file documented as of this encounter Plan of Treatment Not on file documented as of this encounter Procedures Procedure Name Priority Date/Time Associated Diagnosis Comments HCG BETA BLOOD QUANTITATIVE STAT 02/14/2021 12:23 PM PORTAL ARCHITECT documented in this encounter Results * HCG BETA BLOOD QUANTITATIVE (02/14/2021 12:23 PM PORTAL ARCHITECT) hCG Quantitative <1.20 mIU/mL 02/15/20 1:30 PM PORTAL ARCHITECT [facility] Blood BLOOD SPECIMEN / Unknown Venipuncture / Unknown 02/14/2021 12:23 PM PORTAL ARCHITECT 02/14/2021 12:23 PM PORTAL ARCHITECT Narrative [facility] - 02/14/2021 1:30 PM PORTAL ARCHITECT hCG Reference Range, mIU/mL: Males 0-2.0 Non [...] makes unlikely. LAB - CHEMISTRY [facility] [place] Organization Address City/State/ZIP Co de Phone Number [facility] [address] [place] [address] documented in this encounter Visit Diagnoses Not on filedocumented in this encounter
[2024-05-11 15:16] VITALS: BP 127/70; PULSE 91
[2024-05-11 15:18] LABS: Basophils Percent Auto 0.3 % (0.2-1.2); Eosinophils Absolute Auto 0.1 K/mm3 (0-0.3); Eosinophils Percent Auto 0.5 % (0-4.4); Hematocrit 39.5 % (37.0-47.0); Hemoglobin 13.2 g/dL (12.0-15.0); Immature Granulocyte Absolute 0.05 K/mm3 (0.00-0.031); Immature Granulocyte Percent A 0.4 % (0-0.5); Lymphocytes Absolute Auto 2.12 K/mm3 (0.9-3.2); Lymphocytes Percent Auto 14.9 % (18.3-44.2); Mean Corpuscular HGB Conc 33.4 g/dl (32-36); Mean Corpuscular Hemoglobin 30.6 pg (26-34); Mean Corpuscular Volume 91.4 fl (80-100); Mean Platelet Volume 9.5 fl (7.4-10.4); Monocytes Absolute Auto 0.7 K/mm3 (0.1-0.6); Monocytes Percent Auto 4.6 % (2.6-8.5); Neutrophils Absolute Auto 11.3 K/mm3 (1.3-6.7); Neutrophils Percent Auto 79.3 % (45.5-73.1); Platelet Count Result 253 k/mm3 (150-375); Red Blood Count 4.32 M/mm3 (4.2-5.4); White Blood Count 14.3 K/mm3 (4.5-10.0)
[2024-05-11 15:28] LABS: Alanine Aminotransferase 16 U/L (6-35); Albumin Level 3.6 g/dL (3.5-5.1); Alkaline Phosphatase 74 U/L (38-126); Anion Gap 9 mmol/L (4-12); Aspartate Amino Transferase 16 U/L (14-36); Bilirubin,Total 0.3 mg/dL (0.2-1.3); Blood Urea Nitrogen 10 mg/dL (7-17); Calcium 9.1 mg/dL (8.4-10.2); Carbon Dioxide 21 mmol/L (22-30); Chloride 105 mmol/L (98-107); Estimated Glomerular Filt Rate > 60; Glucose 123 mg/dL (65-110); Potassium 3.8 mmol/L (3.4-5.0); Sodium 135 mmol/L (137-145)
[2024-05-11 15:29] VITALS: BP 127/70
[2024-05-11 15:31] VITALS: BP 129/67; PULSE 89
[2024-05-11 15:43] LABS: Creatinine Urine 106.1 mg/dL; Total Protein Urine Random 19 mg/dL; Ur Ttl Prot Creatinine Ratio 0.18 mg/mg (0-0.20)
[2024-05-11 15:46] VITALS: BP 132/69; PULSE 88
[2024-05-11 16:00] VITALS: BMI 39.0
[2024-05-11 16:00] LABS: Add Urine Microscopic? YES; Appearance Urine Cloudy (Clear); Bacteria Urine 1+ /hpf; Bilirubin Urine Negative (Negative); Blood Urine Negative (Negative); Color Urine Yellow (Yellow); Glucose Urine UA Negative (Negative); Ketones Urine Negative (Negative); Leukocyte Esterase Ur Negative LEU/UL (Negative); Nitrate Urine Negative (Negative); Protein Urine Negative (Negative); RBC Urine 0-2 /hpf (0-2); Specific Grav Ur 1.023 (1.001-1.035); Squamous Epithelial Cell Urine Moderate /hpf (Few); Urobilinogen Urine 0.2 mg/dL (<2.0); WBC Urine 0-5 /hpf (0-3); pH Urine 5.5 (5.0-9.0)
--- NOTE | 2024-05-11 16:01 | PC.NURSE ---
Dr. Velarde notfied of vital signs and lab results, okay to discharge with 24 hour urine
== END 2024-05-11 16:01 | disposition home or self-care (01) ==
LOC: ANHOBOP 15:02 → ANHOBPP 15:02
PROVIDERS: Visit Provider Obstetrics & Gynecology Gynecology
DX: O13.9 Gestational [pregnancy-induced] hypertension without significant proteinuria, unspecified trimester (principal); Z3A.00 Weeks of gestation of pregnancy not specified
CPT/HCPCS: 36415; 80053; 81001; 82570; 84156; 84550; 85025; 99199

== ENCOUNTER 2024-05-12 15:02 | Outpatient (CLI) | payer MEDICAID, SELFPAY ==
--- OUTSIDE RECORDS SUMMARY | 2024-05-12 15:09 | XMS_ITS | Encounter Summary ---
Author Organization [facility] Address [address] [place] [address] Care Team Providers Care Alumni Coordinator Name Role Phone Unavailable Primary Care Provider Unavailabl e Encounter Details Date Type Department Care Team (Late st Contact Info) Description 02/14/2021 Lab Requisition [facility] [address] [place] [address] Social History Tobacco Use Types Packs/Day Years [...] BETA BLOOD QUANTITATIVE STAT 02/14/2021 12:23 PM HOOKING MACHINE OPERATOR documented in this encounter Results * HCG BETA BLOOD QUANTITATIVE (02/14/2021 12:23 PM HOOKING MACHINE OPERATOR) hCG Quantitative <1.20 mIU/mL 02/15/20 1:30 PM HOOKING MACHINE OPERATOR [facility] Blood BLOOD SPECIMEN / Unknown Venipuncture / Unknown 02/14/2021 12:23 PM HOOKING MACHINE OPERATOR 02/14/2021 12:23 PM HOOKING MACHINE OPERATOR Narrative [facility] - 02/14/2021 1:30 PM HOOKING MACHINE OPERATOR hCG Reference Range, mIU/mL: Males 0-2.0 Non [...] makes unlikely. LAB - CHEMISTRY [facility] Organization Address City/State/ZIP Co de Phone Number [facility] [address] [place] [address] documented in this encounter Visit Diagnoses Not on filedocumented in this encounter
--- OUTSIDE RECORDS SUMMARY | 2024-05-12 15:09 | XMS_ITS | Clinical Summary ---
Author Organization [facility] Address [address] [place] [address] Phone Care Team Providers Care Horticulture/Floriculture Teacher Name Role Phone Unavailable Primary Care Provider Unavailabl e Encounters Date Type Department Care Team Description 05/03/2024 1:00 PM RESIDENTIAL CASE MANAGER - 05/03/2024 11:59 PM RESIDENTIAL CASE MANAGER Hospital Encounter [facility] Ant Watson [address] [place] [phone] Susan Velarde MD Discharge Disposition: Home or Self Care 04/20/2024 External Device Data STL ABSTRACTION Provider, Abstract 04/15/2024 1:26 PM RESIDENTIAL CASE MANAGER - 04/15/2024 11:59 PM RESIDENTIAL CASE MANAGER Hospital Encounter [facility] Ant Watson [address] [place] [phone] Susan Velarde MD Discharge Disposition: Home or Self Care 04/15/2024 1:26 PM RESIDENTIAL CASE MANAGER - 04/15/2024 11:59 PM RESIDENTIAL CASE MANAGER Hospital Encounter [facility] Ant Watson [address] [place] [phone] Susan Velarde MD Discharge Disposition: Home or Self Care 04/14/2024 External Device Data STL ABSTRACTION Provider, Abstract 04/14/2024 External Device Data STL ABSTRACTION Provider, Abstract 04/07/2024 External Device Data STL ABSTRACTION Provider, Abstract 04/06/2024 External Device Data STL ABSTRACTION Provider, Abstract 03/30/2024 1:00 PM RESIDENTIAL CASE MANAGER - 03/30/2024 11:59 PM RESIDENTIAL CASE MANAGER Hospital Encounter [facility] Ant Watson [address] [place] [phone] Susan Velarde MD Discharge Disposition: Home or Self Care from Last 3 Months Social History Tobacco Use Types Packs/Day Years Used Date Smoking Tobacco: Never Assessed Comments Unknown Sex and Gender Information Value Date Recorded Sex Assigned at Not on file Legal Sex Female 3:09 AM RESIDENTIAL CASE MANAGER Gender Identity Not on file Sexual Orientation Not on file Plan of Treatment Upcoming Encounters Date Type Department Care Team (Late st Contact Info) Description 05/31/2024 1:15 PM CDT Appointment [facility] [place] [address] [place] [address] Kari Dimas MD [address] [facility] [address] [place] [address] Health Maintenance Due Date Last Done Comments DTAP/TDAP/TD VACCINES (1 - Tdap) 2008 HEPATITIS B VACCINES (1 of 3 - 19+ 3-dose series) 2008 Preventative Visit-Managed Medicaid 2008 CERVICAL CANCER SCREENING 12/29/2019 INFLUENZA VACCINE (#1) 2023 HPV VACCINES Aged Out No longer eligi ble based on patient's age to complete this topic Procedures Procedure Name Priority Date/Time Associated Diagnosis Comments US OB FOLLOW UP PER FETUS Routine 05/03/2024 1:35 PM RESIDENTIAL CASE MANAGER screening for malformation using ultrasonics In vitro fertilization Insulin controlled gestational diabetes mellitus (GDM) in third trimester ECHO 2D + COLOR FLOW VELOCITY Routine 04/15/2024 2:51 PM RESIDENTIAL CASE MANAGER screening for malformation using ultrasonics In vitro fertilization US OB FOLLOW UP PER FETUS Routine 04/15/2024 2:51 PM RESIDENTIAL CASE MANAGER screening for malformation using ultrasonics In vitro fertilization US OB DETAIL SINGLE GEST Routine 03/30/2024 2:26 PM RESIDENTIAL CASE MANAGER screening for malformation using ultrasonics In vitro fertilization from Last 3 Months Results * US OB FOLLOW UP PER FETUS (05/03/2024 1:35 PM RESIDENTIAL CASE MANAGER) Only the most recent of2 resultswithin the time period is included. Anatomical Region Laterality Modality Pelvis Ultrasound 05/03/2024 1:12 PM RESIDENTIAL CASE MANAGER Narrative 05/03/2024 1:42 PM RESIDENTIAL CASE MANAGER STL FOLLOW UP ----- Pat. Name: KE BALTAZAR Study Date: 05/03/2024 1:12pm Pat. NO: [id number] Referring MD: SUSAN VELARDE MD Site: [place] Cracking Machine Operator: Kristyn Chilel RDMS : 1990 Age: 33 ----- INDICATION ----- IVF Resulting from Assistive Reproductive Technique Late Care Gestational Diabetes, Insulin Controlled CODING ----- Diagnoses Z3A.31: Weeks of gestation O09.813: Supervision of resulting from assisted reproductive technology Z36.3: Encounter for screening for malformations O09.33: Supervision of with insufficient care O24.414: Gestational diabetes mellitus in , insulin controlled Procedures 33184: Ultrasound, uterus, real time with image documentation, follow up, transabdominal approach per fetus METHOD ----- Transabdominal ultrasound examination ----- Lopez . Number of fetuses: 1 DATING ----- Method of dating: based on stated SULEMAN GA by prior assessment 31 w + 4 d SULEMAN by prior assessment: 07/01/2024 Ultrasound examination on: 05/03/2024 GA by U/S based upon: AC, BPD, EFW, Femur, HC GA by U/S 32 w + 5 d SULEMAN by U/S: 06/23/2024 Assigned: based on stated SULEMAN, selected on 05/03/2024 Assigned GA 31 w + 4 d Assigned SULEMAN: 07/01/2024 BIOMETRY ----- BPD 81.5 mm 32w 5d 75% Hadlock OFD 102.9 mm 33w 3d 89% Fatuma HC 294.7 mm 32w 4d 39% Hadlock AC 301.5 mm 34w 1d 97% Hadlock Femur 60.0 mm 31w 2d 27% Hadlock HC / AC 0.98 9% Nicolaides Weight Calculation: EFW 2,100 g 32w 5d 83% Hadlock EFW (lb,oz) 4 lb 10 oz EFW by Hadlock ([id number]) Head / Face / Neck Biometry: Senior Agricultural Assistant 3.0 mm Extremities / Bony Struc Biometry: FL / BPD 0.74 FL / HC 0.20 FL / AC 0.20 GENERAL EVALUATION ----- Cardiac activity present. FHR 150 bpm. movements: present. Presentation: cephalic Placenta: Placental site: anterior Umbilical cord: Cord vessels: 3 vessel cord. Insertion site: placental insertion: normal Amniotic fluid: Amount of AF: normal amount. MVP 4.0 cm. SP 13.7 cm. Q1 3.5 cm, Q2 2.8 cm, Q3 4.0 cm, Q4 3.5 cm ANATOMY ----- The following structures appear normal: Head / Neck Cranium. Lateral ventricles. Choroid plexus. Midline falx. Cavum septi pellucidi. Heart / Thorax Diaphragm. Abdomen Stomach. Kidneys. Bladder. sex: male. GROWTH OVERVIEW ----- Exam date GA BPD (mm) HC (mm) AC (mm) FL (mm) HL (mm) EFW (g) 03/30/2024 26w 5d 67.1 50% 253.2 49% 233.1 71% 50.8 51% 48.0 85% 1,077 68% 04/15/2024 30w 4d 75.3 27% 276.0 9% 60.0 54% 05/03/2024 31w 4d 81.5 75% 294.7 39% 301.5 97% 60.0 27% 2,100 83% COMMENT ----- Patient's name and date of were verified by the cluster bore operator prior to the exam IMPRESSION ----- Lopez @ 31w 4d complicated by [email or web address]. - The biometry is consistent with dates with the EFW at the 83% but the AC at the 97th percentile. - Amniotic fluid indices are within normal limits. - Limited anatomy is unremarkable. The patient will begin NSTs next week. A follow up is scheduled in 4 weeks to follow growth. Thank you for allowing us to participate in the care of this patient. Procedure Note Kari Dimas MD - 05/03/2024 STL FOLLOW UP ----- Pat. Name:Tj BALTAZAR Date:05/03/2024 1:12pm Pat. NO: [id number] MD:SUSAN VELARDE [facility]Kristyn Chilel RDMS :1990Age:33 ----- INDICATION ----- IVF Resulting from Assistive Reproductive Technique Late Care Gestational Diabetes, Insulin Controlled CODING ----- Diagnoses Z3A.31: Weeks of gestation O09.813: Supervision of resulting fromassisted reproductive technology Z36.3: Encounter for screening formalformations O09.33: Supervision of with insufficientantenatal care O24.414: Gestational diabetes mellitus inpregnancy, insulin controlled Procedures [id number]: Ultrasound, uterus, real time withimage documentation, follow up, transabdominal approach per fetus METHOD ----- Transabdominal ultrasound examination ----- Lopez . Number of fetuses: 1 DATING ----- Method of dating:based on stated SULEMAN GA by prior w + 4 d SULEMAN by prior assessment:07/01/2024 Ultrasound examination on:05/03/2024 GA by U/S based upon:AC, BPD, EFW, Femur, HC GA by U/S32 w + 5 d SULEMAN by U/S:06/23/2024 Assigned:based on stated SULEMAN, selected on 05/03/2024 Assigned GA31 w + 4 d Assigned SULEMAN:07/01/2024 BIOMETRY ----- BPD 81.5 mm 32w 5d 75%Hadlock OFD 102.9 mm 33w 3d 89%Fatuma HC 294.7 mm 32w 4d 39%Hadlock AC 301.5 mm 34w 1d 97%Hadlock Femur 60.0 mm 31w 2d 27%Hadlock HC / AC 0.98 9%Nicolaides Weight Calculation: EFW 2,100 g 32w 5d83% Justa EFW (lb,oz) 4 lb 10 oz EFW by Hadlock ([id number]) Head / Face / Neck Biometry: Senior Agricultural Assistant 3.0mm Extremities / Bony Struc Biometry: FL / BPD 0.74 FL / HC 0.20 FL / AC 0.20 GENERAL EVALUATION ----- Cardiac activity present. FHR 150 bpm. movements: present.Presentation: cephalic Placenta: Placental site: anterior Umbilical cord: Cord vessels: 3 vessel cord. Insertion site: placentalinsertion: normal Amniotic fluid: Amount of AF: normal amount. MVP 4.0 cm. SP 13.7 cm. Q13.5 cm, Q2 2.8 cm, Q3 4.0 cm, Q4 3.5 cm ANATOMY ----- The following structures appear normal: Head / Neck Cranium. Lateral ventricles. Choroid plexus.Midline falx. Cavum septi pellucidi. Heart / Thorax Diaphragm. Abdomen Stomach. Kidneys. Bladder. sex: male. GROWTH OVERVIEW ----- Exam date GA BPD (mm) HC (mm) AC (mm) FL(mm) HL (mm) EFW (g) 03/30/2024 26w 5d 67.1 50% 253.2 49% 233.1 71%50.8 51% 48.0 85% 1,077 68% 04/15/2024 30w 4d 75.3 27% 276.0 9%60.0 54% 05/03/2024 31w 4d 81.5 75% 294.7 39% 301.5 97%60.0 27% 2,100 83% COMMENT ----- Patient's name and date of were verified by the cluster bore operator prior tothe exam IMPRESSION ----- Lopez @ 31w 4d complicated by [email or web address]. - The biometry is consistent with dates with the EFW at the 83% butthe AC at the 97th percentile. - Amniotic fluid indices are within normal limits. - Limited anatomy is unremarkable. The patient will begin NSTs next week. A follow up is scheduled in 4 weeks to follow growth. Thank you for allowing us to participate in the care of this patient. us Susan Velarde MD US ORDERABLES Final Res ult * ECHO 2D + COLOR FLOW VELOCITY (04/15/2024 2:51 PM RESIDENTIAL CASE MANAGER) Narrative 04/16/2024 8:21 AM RESIDENTIAL CASE MANAGER Order information only. Exam was auto-finalized. us Susan Velarde MD US ORDERABLES Final Res ult * US OB DETAIL SINGLE GEST (03/30/2024 2:26 PM RESIDENTIAL CASE MANAGER) Anatomical Region Laterality Modality Pelvis Ultrasound 03/30/2024 1:23 PM RESIDENTIAL CASE MANAGER Narrative 03/30/2024 2:29 PM RESIDENTIAL CASE MANAGER STL COMP ----- Pat. Name: KE BALTAZAR Study Date: 03/30/2024 1:23pm Pat. NO: [id number] Referring MD: SUSAN VELARDE MD Site: [place] Cracking Machine Operator: Lavern Marshall RDMS : 1990 Age: 33 ----- INDICATION ----- Anatomy Survey IVF Resulting from Assistive Reproductive Technique Late Care CODING ----- Diagnoses Z3A.26: Weeks of gestation O09.812: Supervision of resulting from assisted reproductive technology Z36.3: Encounter for screening for malformations O09.32: Supervision of with insufficient care Procedures [id number]: Ultrasound, uterus, real time with image documentation, and maternal evaluation plus detailed anatomic examination, transabdominal approach METHOD ----- Transabdominal ultrasound examination ----- Lopez . Number of fetuses: 1 DATING ----- Method of dating: based on stated SULEMAN GA by prior assessment 26 w + 5 d SULEMAN by prior assessment: 07/01/2024 Ultrasound examination on: 03/30/2024 GA by U/S based upon: AC, BPD, EFW, Femur, HC GA by U/S 27 w + 2 d SULEMAN by U/S: 06/27/2024 Assigned: based on stated SULEMAN, selected on 03/30/2024 Assigned GA 26 w + 5 d Assigned SULEMAN: 07/01/2024 BIOMETRY ----- BPD 67.1 mm 27w 0d 50% Hadlock OFD 91.2 mm 29w 3d 98% Fatuma HC 253.2 mm 27w 4d 49% Hadlock Cerebellum tr 31.9 mm 28w 5d 89% Palma AC 233.1 mm 27w 5d 71% Hadlock Femur 50.8 mm 27w 2d 51% Hadlock Humerus 48.0 mm 28w 1d 85% Fatuma HC / AC 1.09 37% Nicolaides Weight Calculation: EFW 1,077 g 27w 1d 68% Hadlock EFW (lb,oz) 2 lb 6 oz EFW by Hadlock ([id number]) Head / Face / Neck Biometry: Senior Agricultural Assistant 3.5 mm CM 5.6 mm 25% Nicolaides Inner IOD 18.9 mm Heart / Great Vessels Biometry: Cardiac axis 31 Extremities / Bony Struc Biometry: FL / BPD 0.76 FL / HC 0.20 FL / AC 0.22 GENERAL EVALUATION ----- Cardiac activity present. FHR 155 bpm. movements: present. Presentation: cephalic Placenta: Placental site: anterior Umbilical cord: Cord vessels: 3 vessel cord. Insertion site: normal Amniotic fluid: Amount of AF: normal amount. MVP 2.6 cm ANATOMY ----- The following structures appear normal: Head / Neck Cranium. Lateral ventricles. Choroid plexus. Midline falx. Cavum septi pellucidi. Cerebellum. Cisterna magna. Face Orbits. Heart / Thorax RVOT view. LVOT view. 3-vessel view. Situs. Ductal arch view. Superior vena cava. Inferior vena cava. High short axis view. Cardiac rhythm. Diaphragm. Abdomen Abdominal wall. Stomach. Kidneys. Bladder. Spine Cervical spine. Thoracic spine. Lumbar spine. Sacral spine. Extremities / Arms. Right hand. Left hand. Legs. Right foot. Left foot. Skeleton The following structures could not be adequately visualized: Face Lips. Profile. Nose. Palate. Heart / Thorax 4-chamber view. 1-uqusou-mkcrghh view. Aortic arch view. Abdomen Cord insertion. Genitals. sex: male. MATERNAL STRUCTURES ----- Cervix Visualized Approach - Transabdominal Right Ovary Normal Size 26 mm x 13 mm x 15 mm. Vol 2.7 cm Left Ovary Suboptimal GROWTH OVERVIEW ----- Exam date GA BPD (mm) HC (mm) AC (mm) FL (mm) HL (mm) EFW (g) 03/30/2024 26w 5d 67.1 50% 253.2 49% 233.1 71% 50.8 51% 48.0 85% 1,077 68% COMMENT ----- Patient's name and date of were verified by the cluster bore operator before the exam. IMPRESSION ----- 1. Single living fetus with a gestational age of 26w 5d based on the reported clinical dates. 2. Current growth parameters are consistent with the stated EDC. The fetus is appropriate for gestational age in size at the 68% (1077 g). 3. Detailed anatomic survey is unremarkable. No gross structural abnormalities noted. No sonographic markers for aneuploidy noted. - Suboptimal/incomplete views of: nose/lips, palate, profile, 4CH, 3VTV, aortic arch, anterior abdominal wall with FDC and external genitalia. 4. Amniotic fluid volume is normal for gestational age. 5. The cervical length is within normal range for gestational age. 6. The right and left ovary appear normal in size and shape. 7. Placenta is anterior . No previa/not low-lying. The placenta cord insertion is normal. Recommendations: - Screening echocardiogram planned in 2 weeks. Thank you for allowing us to participate in the care of this patient. Procedure Note Breanna Mahmood MD - 03/30/2024 STL COMP ----- Pat. Name:Tj BALTAZAR Date:03/30/2024 1:23pm Pat. NO: [id number] :SUSAN VELARDE [facility]Lavern Marshall RDMS :1990Age:33 ----- INDICATION ----- Anatomy Survey IVF Resulting from Assistive Reproductive Technique Late Care CODING ----- Diagnoses Z3A.26: Weeks of gestation O09.812: Supervision of resulting fromassisted reproductive technology Z36.3: Encounter for screening formalformations O09.32: Supervision of with insufficientantenatal care Procedures [id number]: Ultrasound, uterus, real time withimage documentation, and maternal evaluation plus detailed anatomic examination,transabdominal approach METHOD ----- Transabdominal ultrasound examination ----- Lopez . Number of fetuses: 1 DATING ----- Method of dating:based on stated SULEMAN GA by prior [id number] w + 5 d SULEMAN by prior assessment:07/01/2024 Ultrasound examination on:03/30/2024 GA by U/S based upon:AC, BPD, EFW, Femur, HC GA by U/S27 w + 2 d SULEMAN by U/S:06/27/2024 Assigned:based on stated SULEMAN, selected on 03/30/2024 Assigned GA26 w + 5 d Assigned SULEMAN:07/01/2024 BIOMETRY ----- BPD 67.1 mm 27w 0d50% Hadlock OFD 91.2 mm 29w 3d98% Fatuma HC 253.2 mm 27w 4d49% Hadlock Cerebellum tr 31.9 mm 28w 5d89% Palma AC 233.1 mm 27w 5d71% Hadlock Femur 50.8 mm 27w 2d51% Hadlock Humerus 48.0 mm 28w 1d85% Fatuma HC / AC 1.09 37%Nicolaides Weight Calculation: EFW 1,077 g 27w 1d68% Hadlock EFW (lb,oz) 2 lb 6 oz EFW by Hadlock ([id number]) Head / Face / Neck Biometry: Senior Agricultural Assistant 3.5 mm CM 5.6 mm 25%Nicolaides Inner IOD 18.9 mm Heart / Great Vessels Biometry: Cardiac axis 31 Extremities / Bony Struc Biometry: FL / BPD 0.76 FL / HC 0.20 FL / AC 0.22 GENERAL EVALUATION ----- Cardiac activity present. FHR 155 bpm. movements: present.Presentation: cephalic Placenta: Placental site: anterior Umbilical cord: Cord vessels: 3 vessel cord. Insertion site: normal Amniotic fluid: Amount of AF: normal amount. MVP 2.6 cm ANATOMY ----- The following structures appear normal: Head / Neck Cranium. Lateral ventricles. Choroid plexus.Midline falx. Cavum septi pellucidi. Cerebellum. Cisterna magna. Face Orbits. Heart / Thorax RVOT view. LVOT view. 3-vessel view. Situs. Ductalarch view. Superior vena cava. Inferior vena cava. High short axis view. Cardiac rhythm. Diaphragm. Abdomen Abdominal wall. Stomach. Kidneys. Bladder. Spine Cervical spine. Thoracic spine. Lumbar spine.Sacral spine. Extremities / Arms. Right hand. Left hand. Legs. Right foot.Left foot. Skeleton The following structures could not be adequately visualized: Face Lips. Profile. Nose. Palate. Heart / Thorax 4-chamber view. 8-miefal-jctgyfx view. Aortic archview. Abdomen Cord insertion. Genitals. sex: male. MATERNAL STRUCTURES ----- Cervix Visualized Approach - Transabdominal Right Ovary Normal Size 26 mm x 13 mm x 15 mm. Vol 2.7 cm Left Ovary Suboptimal GROWTH OVERVIEW ----- Exam date GA BPD (mm) HC (mm) AC (mm) FL(mm) HL (mm) EFW (g) 03/30/2024 26w 5d 67.1 50% 253.2 49% 233.1 71%50.8 51% 48.0 85% 1,077 68% COMMENT ----- Patient's name and date of were verified by the cluster bore operator beforethe exam. IMPRESSION ----- 1. Single living fetus with a gestational age of 26w 5d based on thereported clinical dates. 2. Current growth parameters are consistent with the stated EDC. The fetusis appropriate for gestational age in size at the 68% (1077 g). 3. Detailed anatomic survey is unremarkable. No gross structuralabnormalities noted. No sonographic markers for aneuploidy noted. - Suboptimal/incomplete views of: nose/lips, palate, profile, 4CH, 3VTV,aortic arch, anterior abdominal wall with FDC and external genitalia. 4. Amniotic fluid volume is normal for gestational age. 5. The cervical length is within normal range for gestational age. 6. The right and left ovary appear normal in size and shape. 7. Placenta is anterior . No previa/not low-lying. The placenta cordinsertion is normal. Recommendations: - Screening echocardiogram planned in 2 weeks. Thank you for allowing us to participate in the care of this patient. us Susan Velarde MD ORDERABLES Final Res ult from Last 3 Months Insurance MEDICAID [place]
--- OUTSIDE RECORDS SUMMARY | 2024-05-12 15:09 | XMS_ITS | Encounter Summary ---
Author Organization [facility] Address [address] Attn: Epic Prelude ADT [place] [place] [address] Care Team Providers Care Belly Packer Name Role Phone Unavailable Primary Care Provider Unavailabl e Encounter Details Date Type Department Care Team (Late Contact Info) Description 05/26/1998 Outpatient Historical Social History Tobacco Use Types Packs/Day Years Used Date Smoking Tobacco: Never Assessed Comments Unknown Sex and Gender Information Value Date Recorded Sex Assigned at Not on file Legal Sex Female 3:09 AM VIDEO SYSTEMS ENGINEER Gender Identity Not on file Sexual Orientation Not on file documented as of this encounter Plan of Treatment Upcoming Encounters Date Type Department Care Team (Late Contact Info) Description 05/31/2024 1:15 PM CDT Appointment [facility] [address] [place] [address] Kari Dimas MD [address] [facility] [address] [place] [address] documented as of this encounter Visit Diagnoses Not on filedocumented in this encounter
--- OUTSIDE RECORDS SUMMARY | 2024-05-12 15:09 | XMS_ITS | Patient Health Summary ---
Author Organization [facility] on Request Address [address] [facility] [place] [address] Care Team Providers Care Technology Analyst Name Role Phone Unavailable Primary Care Provider Unavailabl e Note from [facility],non-owned Affiliates and Associated Physician Practices is amultiple site organization consisting of ambulatory clinics and hospital sitesin [place], [place], [place] and [place]. This disclosure is being madepursuant to the Care Everywhere program and may not contain all information available regarding this patient. Last updated 17.[facility] on Request Allergies No known active allergies Medications * [...] HCG BETA BLOOD QUANTITATIVE (02/14/2021 12:23 PM SEPTIC TECHNICIAN) hCG Quantitative <1.20 mIU/mL 02/15/20 1:30 PM SEPTIC TECHNICIAN [facility] Blood BLOOD SPECIMEN / Unknown Venipuncture / Unknown 02/14/2021 12:23 PM SEPTIC TECHNICIAN 02/14/2021 12:23 PM SEPTIC TECHNICIAN Narrative [facility] - 02/14/2021 1:30 PM SEPTIC TECHNICIAN hCG Reference Range, mIU/mL: Males 0-2.0 Non [...] makes unlikely. LAB - CHEMISTRY KELLY GOOD [facility] [address] [place] [address] * SKIN TEST PPD - POINT OF CARE (02/13/2019) PPD 0 mm Comment:negative Other MISCELLANEOUS SAMPLE S / Unknown 02/13/2019 Lamar Donnelly APRN-PAID SEARCH MANAGER LAB - POINT OF CARE ORDERABLES * ED LACERATION REPAIR (10/27/2013 6:28 AM CDT) Narrative Manuela Harvey MD - 10/27/2013 6:28 AM CDT N MD Candice 10/27/2013 6:28 AM Provider contact with the patient: 10/27/2013 05:21 Mel Olivia [id number] [facility] History Chief Complaint [...] to verify the correct patient, procedure, equipment, donor support technician and site/side marked as required. [...]
--- OUTSIDE RECORDS SUMMARY | 2024-05-12 15:09 | XMS_ITS | Clinical Summary ---
Author Organization [facility] Address [address] [facility] [place] [address] Care Team Providers Care Millwright Name Role Phone Unavailable Primary Care Provider Unavailabl e Source Comments [facility],non-owned Affiliates and Associated Physician Practices is amultiple site organization consisting of ambulatory clinics and hospital sitesin [place], [place], [place] and [place]. This disclosure is being madepursuant to the Care Everywhere program and may not contain all information available regarding this patient. Last updated 17.[facility] Allergies No known active allergies Medications * [...]
--- OUTSIDE RECORDS SUMMARY | 2024-05-12 15:09 | XMS_ITS | Encounter Summary ---
Author Organization [facility] Address 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
--- OUTSIDE RECORDS SUMMARY | 2024-05-12 15:09 | XMS_ITS | Referral Summary ---
Author Organization [facility] Address [address] [place] [address] Care Team Providers Care Student Accounts Manager Name Role Phone Unavailable Primary Care Provider Unavailabl e Source Comments [facility],non-owned Affiliates and Associated Physician Practices is amultiple site organization consisting of ambulatory clinics and hospital sitesin [place], [place], [place] and [place]. This disclosure is being madepursuant to the Care Everywhere program and may not contain all information available regarding this patient. Last updated 17.[facility] Allergies No known active allergies Medications * [...]
[2024-05-12 16:23] LABS: Collection Time Urine 24 HOURS
[2024-05-12 16:24] LABS: Patient Weight 219 Lbs
[2024-05-12 16:42] LABS: Creatinine Urine 44.6 mg/dL; Serum Creat 0.53; Total Protein Urine Random 19 mg/dL
[2024-05-12 16:51] LABS: Creatinine Clearance Urine 166.6 ml/min (75-125); Total Protein Urine 24 Hr 627 mg/24hr (28-141); Total Volume 24 Hour Urine 3300 ml
== END 2024-05-12 15:03 | disposition home or self-care (01) ==
LOC: ANHOBOP 15:06
PROVIDERS: Visit Provider Obstetrics & Gynecology Gynecology
DX: O13.9 Gestational [pregnancy-induced] hypertension without significant proteinuria, unspecified trimester (principal); Z3A.00 Weeks of gestation of pregnancy not specified
CPT/HCPCS: 81050; 82575; 84156

== ENCOUNTER 2024-05-14 13:50 | Outpatient (RCR) | payer BC, MEDICAID, SELFPAY ==
[2024-05-14 15:44] VITALS: BP 113/68
== END 2024-08-12 23:59 | disposition home or self-care (01) ==
LOC: ANHOBOP 13:50
PROVIDERS: Visit Provider Obstetrics & Gynecology Gynecology
DX: O14.93 Unspecified pre-eclampsia, third trimester (principal); O24.419 Gestational diabetes mellitus in pregnancy, unspecified control; Z3A.33 33 weeks gestation of pregnancy
CPT/HCPCS: 59025

== ENCOUNTER 2024-05-28 14:25 | Outpatient (RCR) | payer BC, MEDICAID, SELFPAY ==
[2024-05-25 16:28] VITALS: BP 120/74; PULSE 115
[2024-05-28 15:48] VITALS: BP 121/65; PULSE 88
--- NOTE | 2024-05-28 15:50 | PC.NURSE ---
1540- Patient had arrived from Dr. Loredo office with request of NST and BPP due to non reactive nst in office. NST here reactive. Spoke with Dr. Hellen David, NST only, no BPP due to reactive NST.
== END 2024-07-14 17:04 | disposition home or self-care (01) ==
LOC: ANHOBOP 14:25
PROVIDERS: Visit Provider Obstetrics & Gynecology Gynecology
DX: O13.3 Gestational [pregnancy-induced] hypertension without significant proteinuria, third trimester (principal); O14.93 Unspecified pre-eclampsia, third trimester; O36.8330 Maternal care for abnormalities of the fetal heart rate or rhythm, third trimester, not applicable or unspecified; Z3A.35 35 weeks gestation of pregnancy
CPT/HCPCS: 59025

== ENCOUNTER 2024-06-08 14:26 | Outpatient (CLI) | payer MEDICAID, SELFPAY ==
[2024-06-08 15:43] LABS: Basophils Percent Auto 0.2 % (0.2-1.2); Eosinophils Absolute Auto 0.1 K/mm3 (0-0.3); Eosinophils Percent Auto 0.5 % (0-4.4); Hematocrit 38.8 % (37.0-47.0); Hemoglobin 13.1 g/dL (12.0-15.0); Immature Granulocyte Absolute 0.08 K/mm3 (0.00-0.031); Immature Granulocyte Percent A 0.6 % (0-0.5); Lymphocytes Absolute Auto 2.19 K/mm3 (0.9-3.2); Lymphocytes Percent Auto 16.5 % (18.3-44.2); Mean Corpuscular HGB Conc 33.8 g/dl (32-36); Mean Corpuscular Hemoglobin 30.5 pg (26-34); Mean Corpuscular Volume 90.2 fl (80-100); Mean Platelet Volume 10.3 fl (7.4-10.4); Monocytes Absolute Auto 0.8 K/mm3 (0.1-0.6); Neutrophils Absolute Auto 10.2 K/mm3 (1.3-6.7); Neutrophils Percent Auto 76.2 % (45.5-73.1); Platelet Count Result 235 k/mm3 (150-375); White Blood Count 13.3 K/mm3 (4.5-10.0)
--- OUTSIDE RECORDS SUMMARY | 2024-06-08 16:17 | XMS_ITS | Clinical Summary ---
Author Organization [facility] Address [address] [place] [address] Phone Care Team Providers Care Cashier Greeter Name Role Phone Unavailable Primary Care Provider Unavailabl e Encounters Date Type Department Care Team Description 05/31/2024 1:06 PM CDT - 05/31/2024 11:59 PM CDT Hospital Encounter [facility] Ant Watson [address] [place] [phone] Kari Dimas MD Discharge Disposition: Home or Self Care 05/29/2024 External Device Data STL ABSTRACTION Provider, Abstract 05/28/2024 External Device Data STL ABSTRACTION Provider, Abstract 05/26/2024 External Device Data STL ABSTRACTION Provider, Abstract 05/11/2024 External Device Data STL ABSTRACTION Provider, Abstract 05/03/2024 1:00 PM RADIATION ONCOLOGY MANAGER - 05/03/2024 11:59 PM RADIATION ONCOLOGY MANAGER Hospital Encounter [facility] Atn Watson [address] [place] [phone] Zuleika Velarde MD Discharge Disposition: Home or Self Care 04/20/2024 External Device Data STL ABSTRACTION Provider, Abstract 04/15/2024 1:26 PM RADIATION ONCOLOGY MANAGER - 04/15/2024 11:59 PM RADIATION ONCOLOGY MANAGER Hospital Encounter [facility] [address] Ant Watson [address] [place] [phone] Zuleika Velarde MD Discharge Disposition: Home or Self Care 04/15/2024 1:26 PM RADIATION ONCOLOGY MANAGER - 04/15/2024 11:59 PM RADIATION ONCOLOGY MANAGER Hospital Encounter [facility] [address] Ant Watson [address] [place] [phone] Zuleika Velarde MD Discharge Disposition: Home or Self Care 04/14/2024 External Device Data STL ABSTRACTION Provider, Abstract 04/14/2024 External Device Data STL ABSTRACTION Provider, Abstract 04/07/2024 External Device Data STL ABSTRACTION Provider, Abstract 04/06/2024 External Device Data STL ABSTRACTION Provider, Abstract 03/30/2024 1:00 PM RADIATION ONCOLOGY MANAGER - 03/30/2024 11:59 PM RADIATION ONCOLOGY MANAGER Hospital Encounter [facility] [address] [place] [phone] Zuleika Velarde MD Discharge Disposition: Home or Self Care from Last 3 Months Social History Tobacco Use Types Packs/Day Years Used Date Smoking Tobacco: Never Assessed Comments Unknown Sex and Gender Information Value Date Recorded Sex Assigned at Not on file Legal Sex Female 3:09 AM RADIATION ONCOLOGY MANAGER Gender Identity Not on file Sexual Orientation Not on file Plan of Treatment Health Maintenance Due Date [...] US OB FOLLOW UP PER FETUS Routine 05/31/2024 1:25 PM CDT Insulin controlled gestational diabetes mellitus (GDM) during , antepartum US OB FOLLOW UP PER FETUS Routine 05/03/2024 1:35 PM RADIATION ONCOLOGY MANAGER screening for malformation using ultrasonics In vitro fertilization Insulin controlled gestational diabetes mellitus (GDM) in third trimester ECHO 2D + COLOR FLOW VELOCITY Routine 04/15/2024 2:51 PM RADIATION ONCOLOGY MANAGER screening for malformation using ultrasonics In vitro fertilization US OB FOLLOW UP PER FETUS Routine 04/15/2024 2:51 PM RADIATION ONCOLOGY MANAGER screening for malformation using ultrasonics In vitro fertilization US OB DETAIL SINGLE GEST Routine 03/30/2024 2:26 PM RADIATION ONCOLOGY MANAGER screening for malformation using ultrasonics In vitro fertilization from Last 3 Months Results * US OB FOLLOW UP PER FETUS (05/31/2024 1:25 PM CDT) Only the most recent of3 resultswithin the time period is included. Anatomical Region Laterality Modality Pelvis Ultrasound 05/31/2024 12:0 6 PM CDT Narrative 05/31/2024 1:30 PM CDT STL FOLLOW UP ----- Pat. Name: KE BALTAZAR Study Date: 05/31/2024 12:06pm Pat. NO: [id number] Referring MD: ZULEIKA VELARDE MD Site: [facility] Analyst: Kristyn Chilel RDMS : 1990 Age: 33 ----- INDICATION ----- IVF Resulting from Assistive Reproductive Technique Late Care Gestational Diabetes, Insulin Controlled CODING ----- Diagnoses Z3A.35: Weeks of gestation O09.813: Supervision of resulting from assisted reproductive technology Z36.3: Encounter for screening for malformations O09.33: Supervision of with insufficient care O24.414: Gestational diabetes mellitus in , insulin controlled Procedures 20226: Ultrasound, uterus, real time with image documentation, follow up, transabdominal approach per fetus METHOD ----- Transabdominal ultrasound examination ----- Lopez . Number of fetuses: 1 DATING ----- GA by prior assessment 35 w + 4 d SULEMAN by prior assessment: 07/01/2024 Ultrasound examination on: 05/31/2024 GA by U/S based upon: AC, BPD, EFW, Femur, HC GA by U/S 37 w + 4 d SULEMAN by U/S: 06/17/2024 Method of dating: Restore dating from previous exam Assigned: based on stated SULEMAN, selected on 05/03/2024 Assigned GA 35 w + 4 d Assigned SULEMAN: 07/01/2024 BIOMETRY ----- BPD 91.3 mm 37w 0d 89% Hadlock OFD 113.0 mm 38w 4d 89% Fatuma HC 328.1 mm 37w 2d 61% Hadlock AC 352.3 mm 39w 1d >99% Hadlock Femur 69.8 mm 35w 6d 50% Hadlock HC / AC 0.93 6% Nicolaides Weight Calculation: EFW 3,349 g 38w 4d 96% Hadlock EFW (lb,oz) 7 lb 6 oz EFW by Hadlock ([id number]) Extremities / Bony Struc Biometry: FL / BPD 0.76 FL / HC 0.21 FL / AC 0.20 GENERAL EVALUATION ----- Cardiac activity present. FHR 137 bpm. movements: present. Presentation: cephalic Placenta: Placental site: anterior Umbilical cord: Cord vessels: 3 vessel cord. Amniotic fluid: Amount of AF: normal amount. MVP 6.1 cm. SP 21.5 cm. Q1 6.1 cm, Q2 4.4 cm, Q3 6.0 cm, Q4 5.0 cm ANATOMY ----- The following structures appear normal: Head / Neck Cranium. Midline falx. Cavum septi pellucidi. Heart / Thorax Diaphragm. Abdomen Stomach. Bladder. sex: male. GROWTH OVERVIEW ----- Exam date GA BPD (mm) HC (mm) AC (mm) FL (mm) HL (mm) EFW (g) 03/30/2024 26w 5d 67.1 50% 253.2 49% 233.1 71% 50.8 51% 48.0 85% 1,077 68% 04/15/2024 30w 4d 75.3 27% 276.0 9% 60.0 54% 05/03/2024 31w 4d 81.5 75% 294.7 39% 301.5 97% 60.0 27% 2,100 83% 05/31/2024 35w 4d 91.3 89% 328.1 61% 352.3 >99% 69.8 50% 3,349 96% COMMENT ----- Patient's name and date of were verified by the service team leader prior to the exam IMPRESSION ----- Impression: Lopez viable intrauterine at 35w 4d in cephalic presentation. Estimated weight is 3349 g (96%ile) with abdominal circumference at the >99%ile. Amniotic fluid volume is normal amount (Amniotic fluid index = 21.5 cm, maximum vertical pocket = 6.1 cm). Recommendation: Continue twice weekly surveillance at primary OB's office. Thank you for inviting us to participate in your patient's care. Procedure Note Elba Knox MD - 05/31/2024 STL FOLLOW UP ----- Pat. Name:Tj BALTAZAR Date:05/31/2024 12:06pm Pat. NO: [id number] :ZULEIKA VELARDE MD [facility]yn Chilel RDMS :1990Age:33 ----- INDICATION ----- IVF Resulting from Assistive Reproductive Technique Late Care Gestational Diabetes, Insulin Controlled CODING ----- Diagnoses Z3A.35: Weeks of gestation O09.813: Supervision of resulting fromassisted reproductive technology Z36.3: Encounter for screening formalformations O09.33: Supervision of with insufficientantenatal care O24.414: Gestational diabetes mellitus inpregnancy, insulin controlled Procedures 80780: Ultrasound, uterus, real time withimage documentation, follow up, transabdominal approach per fetus METHOD ----- Transabdominal ultrasound examination ----- Lopez . Number of fetuses: 1 DATING ----- GA by prior w + 4 d SULEMAN by prior assessment:07/01/2024 Ultrasound examination on:05/31/2024 GA by U/S based upon:AC, BPD, EFW, Femur, HC GA by U/S37 w + 4 d SULEMAN by U/S:06/17/2024 Method of dating:Restore dating from previous exam Assigned:based on stated SULEMAN, selected on 05/03/2024 Assigned GA35 w + 4 d Assigned SULEMAN:07/01/2024 BIOMETRY ----- BPD 91.3 mm 37w 0d 89%Hadlock OFD 113.0 mm 38w 4d 89%Fatuma HC 328.1 mm 37w 2d 61%Hadlock AC 352.3 mm 39w 1d >99%Hadlock Femur 69.8 mm 35w 6d 50%Hadlock HC / AC 0.93 6%Nicolaides Weight Calculation: EFW 3,349 g 38w 4d96% Hadlock EFW (lb,oz) 7 lb 6 oz EFW by Hadlock ([id number]) Extremities / Bony Struc Biometry: FL / BPD 0.76 FL / HC 0.21 FL / AC 0.20 GENERAL EVALUATION ----- Cardiac activity present. FHR 137 bpm. movements: present.Presentation: cephalic Placenta: Placental site: anterior Umbilical cord: Cord vessels: 3 vessel cord. Amniotic fluid: Amount of AF: normal amount. MVP 6.1 cm. SP 21.5 cm. Q16.1 cm, Q2 4.4 cm, Q3 6.0 cm, Q4 5.0 cm ANATOMY ----- The following structures appear normal: Head / Neck Cranium. Midline falx. Cavum septi pellucidi. Heart / Thorax Diaphragm. Abdomen Stomach. Bladder. sex: male. GROWTH OVERVIEW ----- Exam date GA BPD (mm) HC (mm) AC (mm)FL (mm) HL (mm) EFW (g) 03/30/2024 26w 5d 67.1 50% 253.2 49% 233.1 71%50.8 51% 48.0 85% 1,077 68% 04/15/2024 30w 4d 75.3 27% 276.0 9%60.0 54% 05/03/2024 31w 4d 81.5 75% 294.7 39% 301.5 97%60.0 27% 2,100 83% 05/31/2024 35w 4d 91.3 89% 328.1 61% 352.3 >99%69.8 50% 3,349 96% COMMENT ----- Patient's name and date of were verified by the service team leader prior tothe exam IMPRESSION ----- Impression: Lopez viable intrauterine at 35w 4d in cephalicpresentation. Estimated weight is 3349 g (96%ile) with abdominal circumference atthe >99%ile. Amniotic fluid volume is normal amount (Amniotic fluid index = 21.5 cm,maximum vertical pocket = 6.1 cm). Recommendation: Continue twice weekly surveillance at primary OB's office. Thank you for inviting us to participate in your patient's care. us Kari Dimas MD US ORDERABLES Final Result * ECHO 2D + COLOR FLOW VELOCITY (04/15/2024 2:51 PM RADIATION ONCOLOGY MANAGER) Narrative 04/16/2024 8:21 AM RADIATION ONCOLOGY MANAGER Order information only. Exam was auto-finalized. us Zuleika Velarde MD US ORDERABLES Final Res ult * US OB DETAIL SINGLE GEST (03/30/2024 2:26 PM RADIATION ONCOLOGY MANAGER) Anatomical Region Laterality Modality Pelvis Ultrasound 03/30/2024 1:23 PM RADIATION ONCOLOGY MANAGER Narrative 03/30/2024 2:29 PM RADIATION ONCOLOGY MANAGER STL COMP ----- Pat. Name: KE BALTAZAR Study Date: 03/30/2024 1:23pm Pat. NO: [id number] Referring MD: ZULEIKA VELARDE MD Site: [facility] Analyst: Lavern Marshall RDMS : 1990 Age: 33 ----- INDICATION ----- Anatomy Survey IVF Resulting from Assistive Reproductive Technique Late Care CODING ----- Diagnoses Z3A.26: Weeks of gestation O09.812: Supervision of resulting from assisted reproductive technology Z36.3: Encounter for screening for malformations O09.32: Supervision of with insufficient care Procedures 12095: Ultrasound, uterus, real time with image documentation, [...] Cerebellum tr 31.9 mm 28w 5d 89% Louie AC 233.1 mm 27w 5d 71% Hadlock Femur 50.8 mm 27w 2d 51% Hadlock Humerus 48.0 mm 28w 1d 85% Fatuma HC / AC 1.09 37% Nicolaides Weight Calculation: EFW 1,077 g 27w 1d 68% Hadlock EFW (lb,oz) 2 lb 6 oz EFW by Hadlock ([id number]) Head / Face / Neck Biometry: Edge Molder 3.5 mm CM 5.6 mm 25% Nicolaides [...] Nose. Palate. Heart / Thorax 4-chamber view. 0-kqbohr-slgwixx view. Aortic arch view. Abdomen Cord insertion. [...] and date of were verified by the service team leader before the exam. IMPRESSION ----- 1. Single [...] 3VTV, aortic arch, anterior abdominal wall with CORRECTION and external genitalia. 4. Amniotic fluid volume [...] Pat. Name:Tj BALTAZAR Date:03/30/2024 1:23pm Pat. NO: [id number] MD:ZULEIKA VELARDE MD [facility]Lavern Marshall RDMS :1990Age:33 ----- INDICATION ----- Anatomy Survey IVF Resulting from Assistive Reproductive Technique Late Care CODING ----- Diagnoses Z3A.26: Weeks of gestation O09.812: Supervision of resulting fromassisted reproductive technology Z36.3: Encounter for screening formalformations O09.32: Supervision of with insufficientantenatal care Procedures 19255: Ultrasound, uterus, real time withimage documentation, and maternal evaluation plus detailed anatomic examination,transabdominal approach METHOD ----- Transabdominal ultrasound examination ----- Lopez . Number of fetuses: 1 DATING ----- Method of dating:based on stated SULEMAN GA by prior [id number] w + 5 d SULEMAN by prior [...] 2 lb 6 oz EFW by Hadlock ([id number]) Head / Face / Neck Biometry: Edge Molder 3.5 mm CM 5.6 mm 25%Nicolaides Inner [...] Nose. Palate. Heart / Thorax 4-chamber view. 8-monwjv-pckmpag view. Aortic archview. Abdomen Cord insertion. Genitals. [...] and date of were verified by the service team leader beforethe exam. IMPRESSION ----- 1. Single living [...] 4CH, 3VTV,aortic arch, anterior abdominal wall with CORRECTION and external genitalia. 4. Amniotic fluid volume [...] in the care of this patient. us Zuleika Velarde MD US ORDERABLES Final Res ult from Last 3 Months Insurance MEDICAID [place]
--- OUTSIDE RECORDS SUMMARY | 2024-06-08 16:17 | XMS_ITS | Clinical Summary ---
Author Organization [facility] Address [address] [place] [address] Care Team Providers Care Fitness And Wellness Director Name Role Phone Unavailable Primary Care Provider Unavailabl e Source Comments [facility],non-owned Affiliates and Associated Physician Practices is amultiple site organization consisting of ambulatory clinics and hospital sitesin [place], [place], [place] and [place]. This disclosure is being madepursuant to the Care Everywhere program and may not contain all information available regarding this patient. Last updated 17.[facility] Allergies No known active allergies Medications * [...] of 3 - 19+ 3-dose series) 2008 COVID-19 VACCINE ( - 2023-2 5 season) 2023 INFLUENZA VACCINE (#1) 2023 DEPRESSION SCREENING 03/24/2024 ZOSTER VACCINE (1 of 2) 12/29/2039 HIB VACCINE Aged Out No longer eligi ble based on patient's age to complete this topic HPV VACCINE Aged Out No longer eligi ble based on patient's age to complete this topic MENINGOCOCCAL (Group B) VACC INE SHARED DECISION-MAKING Aged Out No longer eligibl e based on patient's age to complete this topic MENINGOCOCCAL GROUPS A/C/Y/W VACCINE Aged Out No longer eligible b ased on patient's age to complete this topic PNEUMOCOCCAL VACCINE Aged Out No long er eligible based on patient's age to complete this topic
--- OUTSIDE RECORDS SUMMARY | 2024-06-08 16:17 | XMS_ITS | Encounter Summary ---
Author Organization [facility] Address [address] [place] [address] Care Team Providers Care Java Sql Developer Name Role Phone Unavailable Primary Care Provider Unavailabl e Encounter Details Date Type Department Care Team (Late st Contact Info) Description 02/14/2021 Lab Requisition [facility] [address] [place] [address] Social History Tobacco Use Types Packs/Day Years [...] BETA BLOOD QUANTITATIVE STAT 02/14/2021 12:23 PM NOTCH MACHINE OPERATOR documented in this encounter Results * HCG BETA BLOOD QUANTITATIVE (02/14/2021 12:23 PM NOTCH MACHINE OPERATOR) hCG Quantitative <1.20 mIU/mL 02/15/20 1:30 PM NOTCH MACHINE OPERATOR [facility] Blood BLOOD SPECIMEN / Unknown Venipuncture / Unknown 02/14/2021 12:23 PM NOTCH MACHINE OPERATOR 02/14/2021 12:23 PM NOTCH MACHINE OPERATOR Narrative [facility] - 02/14/2021 1:30 PM NOTCH MACHINE OPERATOR hCG Reference Range, mIU/mL: Males [...] makes unlikely. LAB - CHEMISTRY KELLY [facility] Organization Address City/State/ZIP Co de Phone Number [facility] [address] [place] [address] documented in this encounter Visit Diagnoses Not on filedocumented in this encounter
--- OUTSIDE RECORDS SUMMARY | 2024-06-08 16:17 | XMS_ITS | Encounter Summary ---
Author Organization [facility] Address [address] Attn: Epic Prelude ADT KUSUM GARAY [phone] Care Team Providers Care Executive Pilot Name Role Phone Unavailable Primary Care Provider Unavailabl e Encounter Details Date Type Department Care Team (Late st Contact Info) Description 05/26/1998 Outpatient Historical Social History Tobacco Use Types Packs/Day Years Used Date Smoking Tobacco: Never Assessed Comments Unknown Sex and Gender Information Value Date Recorded Sex Assigned at Not on file Legal Sex Female 3:09 AM X RAY ELECTRONICS WIREMAN Gender Identity Not on file Sexual Orientation Not on file documented as of this encounter Plan of Treatment Not on file documented as of this encounter Visit Diagnoses Not on filedocumented in this encounter
--- OUTSIDE RECORDS SUMMARY | 2024-06-08 16:17 | XMS_ITS | Encounter Summary ---
Author Organization [facility] Address [address] [place] [address] Care Team Providers Care Web Database Developer Name Role Phone Unavailable Primary Care Provider Unavailabl e Encounter Details Date Type Department Care Team (Late st Contact Info) Description 09/15/2006 Outpatient Historical [facility] [address] [address] Eldon Torres MD NO ADDRESS ON FILE Social History Tobacco Use Types Packs/Day Years Used Date Smoking Tobacco: Never Assessed Comments Unknown Sex and Gender Information Value Date Recorded Sex Assigned at Not on file Legal Sex Female 3:09 AM SENIOR ACCOUNT REPRESENTATIVE Gender Identity Not on file Sexual Orientation Not on file documented as of this encounter Plan of Treatment Not on file documented as of this encounter Visit Diagnoses Not on filedocumented in this encounter
[2024-06-08 16:27] LABS: Syphilis IgG/IgM Antibody Negative (Negative)
[2024-06-08 16:32] LABS: HIV 1/2 Ab P24 Ag Result Negative (Negative)
== END 2024-06-08 14:27 | disposition home or self-care (01) ==
LOC: ANHOBOP 14:29
PROVIDERS: Visit Provider Obstetrics & Gynecology Gynecology
DX: Z34.93 Encounter for supervision of normal pregnancy, unspecified, third trimester (principal); Z3A.00 Weeks of gestation of pregnancy not specified
CPT/HCPCS: 36415; 85025; 86593; 86703; 86850; 86900; 86901; G0432

== ENCOUNTER 2024-06-09 05:30 | Inpatient (IN) | payer MEDICAID, SELFPAY ==
[2024-05-12 15:10] VITALS: BMI 38.8
[2024-06-09] VITALS (64 sets, daily range): BP systolic 104–132; BP diastolic 61–89; PULSE 59–183; RESP 16–18; TEMP 36–36.6; O2SAT 80–100; BMI 39.7
--- OUTSIDE RECORDS SUMMARY | 2024-06-09 05:36 | XMS_ITS | Encounter Summary ---
Author Organization [facility] Address [address] [facility] [place] [address] Care Team Providers Care Wastewater Treatment Plant Supervisor Name Role Phone Unavailable Primary Care Provider Unavailabl e Encounter Details Date Type Department Care Team (Late st Contact Info) Description 02/14/2021 Lab Requisition [facility] [address] [place] [address] Social History Tobacco Use Types Packs/Day Years [...] BETA BLOOD QUANTITATIVE STAT 02/14/2021 12:23 PM EMERGENCY MEDICAL DISPATCHER documented in this encounter Results * HCG BETA BLOOD QUANTITATIVE (02/14/2021 12:23 PM EMERGENCY MEDICAL DISPATCHER) hCG Quantitative <1.20 mIU/mL 02/15/20 1:30 PM EMERGENCY MEDICAL DISPATCHER [facility] Blood BLOOD SPECIMEN / Unknown Venipuncture / Unknown 02/14/2021 12:23 PM EMERGENCY MEDICAL DISPATCHER 02/14/2021 12:23 PM EMERGENCY MEDICAL DISPATCHER Narrative [facility] - 02/14/2021 1:30 PM EMERGENCY MEDICAL DISPATCHER hCG Reference Range, mIU/mL: Males 0-2.0 Non [...] makes unlikely. LAB - CHEMISTRY KELLY [facility] Organization Address City/State/ZIP Co de Phone Number [facility] [address] [place] [address] documented in this encounter Visit Diagnoses Not on filedocumented in this encounter
--- OUTSIDE RECORDS SUMMARY | 2024-06-09 05:36 | XMS_ITS | Clinical Summary ---
Author Organization [facility] Address [address] [place] [address] Care Team Providers Care Investigative Reporter Name Role Phone Unavailable Primary Care Provider Unavailabl e Source Comments [facility],non-owned Affiliates and Associated Physician Practices is amultiple site organization consisting of ambulatory clinics and hospital sitesin [place], [place], [place] and [place]. This disclosure is being madepursuant to the Care Everywhere program and may not contain all information available regarding this patient. Last updated 17.[facility] Allergies No known active allergies Medications * [...]
--- OUTSIDE RECORDS SUMMARY | 2024-06-09 05:36 | XMS_ITS | Encounter Summary ---
Author Organization [facility] Address [address] [facility] Attn: Epic Prelude ADT KUSUM GARAY [address] Care Team Providers Care Chute Tender Name Role Phone Unavailable Primary Care Provider Unavailabl e Encounter Details Date Type Department Care Team (Late st Contact Info) Description 05/26/1998 Outpatient Historical Social History Tobacco Use Types Packs/Day Years Used Date Smoking Tobacco: Never Assessed Comments Unknown Sex and Gender Information Value Date Recorded Sex Assigned at Not on file Legal Sex Female 3:09 AM GIFT BASKET PACKER Gender Identity Not on file Sexual Orientation Not on file documented as of this encounter Plan of Treatment Not on file documented as of this encounter Visit Diagnoses Not on filedocumented in this encounter
--- OUTSIDE RECORDS SUMMARY | 2024-06-09 05:36 | XMS_ITS | Encounter Summary ---
Author Organization Address [address] [place] [address] Care Team Providers Care Softwood Faller Name Role Phone Unavailable Primary Care Provider Unavailabl e Encounter Details Date Type Department Care Team (Late st Contact Info) Description 09/15/2006 Outpatient Historical [facility] [address] [address] Eldon Torres MD NO ADDRESS ON FILE Social History Tobacco Use Types Packs/Day Years Used Date Smoking Tobacco: Never Assessed Comments Unknown Sex and Gender Information Value Date Recorded Sex Assigned at Not on file Legal Sex Female 3:09 AM FOOT CASTER Gender Identity Not on file Sexual Orientation Not on file documented as of this encounter Plan of Treatment Not on file documented as of this encounter Visit Diagnoses Not on filedocumented in this encounter
--- OUTSIDE RECORDS SUMMARY | 2024-06-09 05:36 | XMS_ITS | Clinical Summary ---
Author Organization [facility] Address [address] [place] [address] Phone Care Team Providers Care Bankman Name Role Phone Unavailable Primary Care Provider Unavailabl e Encounters Date Type Department Care Team Description 05/31/2024 1:06 PM CDT - 05/31/2024 11:59 PM CDT Hospital Encounter [facility] [address] [place] [phone] Kari Dimas MD Discharge Disposition: Home or Self Care 05/29/2024 External Device Data STL ABSTRACTION Provider, Abstract 05/28/2024 External Device Data STL ABSTRACTION Provider, Abstract 05/26/2024 External Device Data STL ABSTRACTION Provider, Abstract 05/11/2024 External Device Data STL ABSTRACTION Provider, Abstract 05/03/2024 1:00 PM SHERIFF - 05/03/2024 11:59 PM SHERIFF Hospital Encounter [facility] [address] [place] [phone] Zuleika Velarde MD Discharge Disposition: Home or Self Care 04/20/2024 External Device Data STL ABSTRACTION Provider, Abstract 04/15/2024 1:26 PM SHERIFF - 04/15/2024 11:59 PM SHERIFF Hospital Encounter [facility] [address] [place] [phone] Zuleika Velarde MD Discharge Disposition: Home or Self Care 04/15/2024 1:26 PM SHERIFF - 04/15/2024 11:59 PM SHERIFF Hospital Encounter [facility] [address] [place] [phone] Zuleika Velarde MD Discharge Disposition: Home or Self Care 04/14/2024 External Device Data STL ABSTRACTION Provider, Abstract 04/14/2024 External Device Data STL ABSTRACTION Provider, Abstract 04/07/2024 External Device Data STL ABSTRACTION Provider, Abstract 04/06/2024 External Device Data STL ABSTRACTION Provider, Abstract 03/30/2024 1:00 PM SHERIFF - 03/30/2024 11:59 PM SHERIFF Hospital Encounter [facility] [address] [place] [phone] Zuleika Velarde MD Discharge Disposition: Home or Self Care from Last 3 Months Social History Tobacco Use Types Packs/Day Years Used Date Smoking Tobacco: Never Assessed Comments Unknown Sex and Gender Information Value Date Recorded Sex Assigned at Not on file Legal Sex Female 3:09 AM SHERIFF Gender Identity Not on file Sexual Orientation [...] UP PER FETUS Routine 05/03/2024 1:35 PM SHERIFF screening for malformation using ultrasonics In vitro fertilization Insulin controlled gestational diabetes mellitus (GDM) in third trimester ECHO 2D + COLOR FLOW VELOCITY Routine 04/15/2024 2:51 PM SHERIFF screening for malformation using ultrasonics In vitro fertilization US OB FOLLOW UP PER FETUS Routine 04/15/2024 2:51 PM SHERIFF screening for malformation using ultrasonics In vitro fertilization US OB DETAIL SINGLE GEST Routine 03/30/2024 2:26 PM SHERIFF screening for malformation using ultrasonics In vitro [...] BALTAZAR Study Date: 05/31/2024 12:06pm Pat. NO: [id number] Referring MD: ZULEIKA VELARDE MD Site: [facility] [employer] Operator: Kristyn Chilel RDMS : 1990 Age: 33 ----- INDICATION ----- IVF Resulting from Assistive Reproductive Technique Late Care Gestational Diabetes, Insulin Controlled CODING ----- Diagnoses Z3A.35: Weeks of gestation O09.813: Supervision of resulting from assisted reproductive technology Z36.3: Encounter for screening for malformations O09.33: Supervision of with insufficient care O24.414: Gestational diabetes mellitus in , insulin controlled Procedures 00111: Ultrasound, uterus, real time with image documentation, [...] 7 lb 6 oz EFW by Hadlock ([id number]) Extremities / Bony Struc Biometry: FL / [...] and date of were verified by the movie projectionist prior to the exam IMPRESSION ----- Impression: [...] Pat. Name:Tj BALTAZAR Date:05/31/2024 12:06pm Pat. NO: [id number] :ZULEIKA VELARDE [facility] Chilel RDMS :1990Age:33 ----- INDICATION ----- IVF Resulting from Assistive Reproductive Technique Late Care Gestational Diabetes, Insulin Controlled CODING ----- Diagnoses Z3A.35: Weeks of gestation O09.813: Supervision of resulting fromassisted reproductive technology Z36.3: Encounter for screening formalformations O09.33: Supervision of with insufficientantenatal care O24.414: Gestational diabetes mellitus inpregnancy, insulin controlled Procedures 96261: Ultrasound, uterus, real time withimage documentation, follow up, transabdominal approach per fetus METHOD ----- Transabdominal ultrasound examination ----- Lopez . Number of fetuses: 1 DATING ----- GA by prior [id number] w + 4 d SULEMAN by prior [...] 7 lb 6 oz EFW by Hadlock ([id number]) Extremities / Bony Struc Biometry: FL / [...] and date of were verified by the movie projectionist prior tothe exam IMPRESSION ----- Impression: Lopez [...] + COLOR FLOW VELOCITY (04/15/2024 2:51 PM SHERIFF) Narrative 04/16/2024 8:21 AM SHERIFF Order information only. Exam was auto-finalized. us Zuleika Velarde MD US ORDERABLES Final Res ult * US OB DETAIL SINGLE GEST (03/30/2024 2:26 PM SHERIFF) Anatomical Region Laterality Modality Pelvis Ultrasound 03/30/2024 1:23 PM SHERIFF Narrative 03/30/2024 2:29 PM SHERIFF STL COMP ----- Pat. Name: KE BALTAZAR Study Date: 03/30/2024 1:23pm Pat. NO: [id number] Referring MD: ZULEIKA VELARDE MD Site: [facility] [employer] Operator: Lavern Marshlal RDMS : 1990 Age: 33 ----- INDICATION ----- Anatomy Survey IVF Resulting from Assistive Reproductive Technique Late Care CODING ----- Diagnoses Z3A.26: Weeks of gestation O09.812: Supervision of resulting from assisted reproductive technology Z36.3: Encounter for screening for malformations O09.32: Supervision of with insufficient care Procedures 76181: Ultrasound, uterus, real time with image documentation, [...] 2 lb 6 oz EFW by Hadlock ([id number]) Head / Face / Neck Biometry: Caramel Candy Maker 3.5 mm CM 5.6 mm 25% Nicolaides [...] Nose. Palate. Heart / Thorax 4-chamber view. 4-razzvo-yelhlde view. Aortic arch view. Abdomen Cord insertion. [...] and date of were verified by the movie projectionist before the exam. IMPRESSION ----- 1. Single [...] 3VTV, aortic arch, anterior abdominal wall with CUSTODIAL and external genitalia. 4. Amniotic fluid volume [...] Pat. Name:Tj BALTAZAR Date:03/30/2024 1:23pm Pat. NO: [id number] MD:ZULEIKA VELARDE MD [facility]Lavern Marshall RDMS :1990Age:33 ----- INDICATION ----- Anatomy Survey IVF Resulting from Assistive Reproductive Technique Late Care CODING ----- Diagnoses Z3A.26: Weeks of gestation O09.812: Supervision of resulting fromassisted reproductive technology Z36.3: Encounter for screening formalformations O09.32: Supervision of with insufficientantenatal care Procedures 79917: Ultrasound, uterus, real time withimage documentation, and maternal evaluation plus detailed anatomic examination,transabdominal approach METHOD ----- Transabdominal ultrasound examination ----- Lopez . Number of fetuses: 1 DATING ----- Method of dating:based on stated SULEMAN GA by prior [id number] w + 5 d SULEMAN by prior [...] 2 lb 6 oz EFW by Hadlock ([id number]) Head / Face / Neck Biometry: Caramel Candy Maker 3.5 mm CM 5.6 mm 25%Nicolaides Inner [...] Nose. Palate. Heart / Thorax 4-chamber view. 6-gxaqss-kdrhvhx view. Aortic archview. Abdomen Cord insertion. Genitals. [...] and date of were verified by the movie projectionist beforethe exam. IMPRESSION ----- 1. Single living [...] 4CH, 3VTV,aortic arch, anterior abdominal wall with CUSTODIAL and external genitalia. 4. Amniotic fluid volume [...]
[2024-06-09] MEDS: LACTATED RINGERS 1,000 ML 125 ML IV CONT ×2 (06:00→07:20)
--- NOTE | 2024-06-09 06:09 | LDADM ---
This patient, Mel Olivia, was admitted to Labor/Delivery/Recovery 118 on 06/09/24 at 05:30. Plans for labor, pain management and were discussed with patient. Patient/family oriented to hospital policies and general routines including ID bracelet, bed and alarms, visiting hours, pain management, procedures, bathroom and other care routines, personal items, smoking policy, room service/diet and guest tray routines, security routines, and visiting hours. Patient/Family are encouraged to report perceived risks to care and to ask questions if they do not understand what they are told or what they should do. See OBIX for further documentation.
[2024-06-09] MEDS: ACETAMINOPHEN 500 MG TABLET 1000 MG PO (06:24)
--- NOTE | 2024-06-09 07:06 | P.PNAN_ITS ---
Anes - Initial Pre Proc Eval Procedure: Operation Date: 06/09/24 07:30 Proposed Procedures p Primary Section - Susan Velarde MD Date/Time: 06/09/24 07:06 Surgeon: Susan Velarde MD Pre Op Diagnosis: Patient Data Age: 33 Gender: F Height: 1.63 m Weight: 105 kg Last Vital Signs Pulse 85 06/09/24 07:00 BP 121/84 06/09/24 07:00 Pulse Ox 99 06/09/24 06:59 O2 Del Method Room Air 06/09/24 06:09 Allergies Allergy/AdvReac Type Severity Reaction Status Date / Time No Known Allergies Allergy Unknown Verified 06/08/24 15:02 Home Medications ?Medication ?Instructions ?Recorded ?Confirmed ?Type prenat.vits,lea,sbo-qpkq-cwhup 1 tablet PO DAILY 10/25/21 06/08/24 History ergocalciferol (vitamin D2) 1,250 50,000 unit PO WEEKLY 05/14/24 06/08/24 History mcg (50,000 unit) capsule insulin NPH isoph U-100 human 100 57 unit subcut QPM gestational 06/08/24 06/09/24 History unit/mL (3 mL) subcutaneous pen diabetes (Humulin N NPH U-100 Insulin KwikPen) Patient hx anesthesia problems: none Family hx anesthesia problems: none Results Review: All pre-operative results and documents have been reviewed as part of the pre- operative evaluation. [facility] Past Medical History Medical History Gestational diabetes mellitus (GDM) affecting Gestational hypertension Family History Family History Father Hypertension Mother Hypertension Grandparent Family history of elevated blood lipids Family history of malignant neoplasm of breast Diabetes mellitus Social History Social History Years smoked: 15 Smoking status: Former smoker Tobacco type: cigarettes Second hand tobacco smoke exposure: No Smoking end date: 09/22/23 Alcohol intake: never Substance use: current Do You Feel Safe in your Home?: Yes Lack of Transportation: No Lack of Food: Never True Current Housing: I Have Housing Concerned About Future Housing: No Difficulty Paying Gas/Electric Bills: No Difficulty Paying for Meds: No Currently Unemployed: No Education: Associate Degree Difficulty w/ Childcare or Family Care: No Spiritual care concerns: No Anes - Eval Final PreProcedure Day of Procedure 06/09/24 07:06 Patient weight: morbidly obese Heart: regular rate and rhythm Lungs: clear to auscultation Airway: Mallampati scale class II Neurological: alert and oriented Last oral intake: >/= 8 hours ASA classification: III Emergent: no Anesthetic plan: proceed Anesthesia type and monitoring: regional spinal and standard monitoring Results Review: All pre-operative results and documents have been reviewed as part of the pre- operative evaluation. Informed Consent: The patient's anesthetic plan and its attendant risks and benefits were discussed with the patient/family/POA. Questions were solicited and answers provided to the satisfaction of the patient/family/POA.
--- NOTE | 2024-06-09 07:13 | WPDHPUPDATE1 ---
History and Physical Update Update Date/Time: 06/09/24 07:13 History and Physical has been reviewed, including an updated exam of the patient. There are NO changes in the patient's condition. Risks, benefits, and alternatives have been discussed and questions answered. Patient agrees to proceed with procedure.
--- NOTE | 2024-06-09 07:14 | PM.IMHP ---
H&P: HPI History of Present Illness Date/Time: 06/09/24 07:14 Chief Complaint: Intrauterine at 36-,6/7 Preeclampsia Gestational diabetes insulin requiring Previous shoulder dystocia Narrative: The patient is a 33-year-old 7 para 2 aborta 4 who admitted at 36 and 6 7th weeks for primary . Patient has developed gestational diabetes insulin requiring and sugars have been under good control. Patient then developed preeclampsia and has been on bedrest with close and maternal monitoring. labs A-positive, rubella immune, RPR negative, hepatitis-B surface antigen negative, HIV negative, group B strep negative. Patient had late care beginning at 22 weeks. conceived by in vitro fertilization. Per OB history is significant for 37 week with significant shoulder dystocia with a 7lb 9oz . Last weight estimates 3349g at the 96 percentile. Fundal height is 45cm. After significant discussions with the patient she has elected to proceed with a primary due to the prior shoulder dystocia. Risks of surgery were reviewed with the patient. Patient voices understanding and agrees to proceed. 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 Family History Family History Father Hypertension Mother Hypertension Grandparent Family history of elevated blood lipids Family history of malignant neoplasm of breast Diabetes mellitus Social History Social History Years smoked: 15 Smoking status: Former smoker Tobacco type: cigarettes Second hand tobacco smoke exposure: No Smoking end date: 09/22/23 Alcohol intake: never Substance use: current Do You Feel Safe in your Home?: Yes Lack of Transportation: No Lack of Food: Never True Current Housing: I Have Housing Concerned About Future Housing: No Difficulty Paying Gas/Electric Bills: No Difficulty Paying for Meds: No Currently Unemployed: No Education: Associate Degree Difficulty w/ Childcare or Family Care: No Spiritual care concerns: No Meds Home Medications and Allergies Home Medications ?Medication ?Instructions ?Recorded ?Confirmed ?Type prenat.vits,lea,hyj-bfjg-aqlku 1 tablet PO DAILY 10/25/21 06/08/24 History ergocalciferol (vitamin D2) 1,250 50,000 unit PO WEEKLY 05/14/24 06/08/24 History mcg (50,000 unit) capsule insulin NPH isoph U-100 human 100 57 unit subcut QPM gestational 06/08/24 06/09/24 History unit/mL (3 mL) subcutaneous pen diabetes (Humulin N NPH U-100 Insulin KwikPen) Allergies Allergy/AdvReac Type Severity Reaction Status Date / Time No Known Allergies Allergy Unknown Verified 06/08/24 15:02 Vital Signs Vital Signs - 24 hr 06/09/24 05:46 06/09/24 05:47 06/09/24 05:51 Pulse Rate 80 Blood Pressure 107/62 Pulse Oximetry 100 99 Oxygen Delivery 06/09/24 05:56 06/09/24 06:00 06/09/24 06:01 Pulse Rate 79 Blood Pressure 104/61 Pulse Oximetry 98 99 Oxygen Delivery 06/09/24 06:06 06/09/24 06:09 06/09/24 06:11 Pulse Rate Blood Pressure Pulse Oximetry 99 98 Oxygen Delivery Room Air 06/09/24 06:15 06/09/24 06:16 06/09/24 06:21 Pulse Rate 88 Blood Pressure 111/70 Pulse Oximetry 100 100 Oxygen Delivery 06/09/24 06:26 06/09/24 06:30 06/09/24 06:31 Pulse Rate 85 Blood Pressure 107/64 Pulse Oximetry 100 99 Oxygen Delivery 06/09/24 06:36 06/09/24 06:41 06/09/24 06:45 Pulse Rate 80 Blood Pressure 116/71 Pulse Oximetry 100 95 Oxygen Delivery 06/09/24 06:46 06/09/24 06:48 06/09/24 06:48 Pulse Rate Blood Pressure Pulse Oximetry 100 97 100 Oxygen Delivery 06/09/24 06:50 06/09/24 06:50 06/09/24 06:51 Pulse Rate Blood Pressure Pulse Oximetry 99 81 L 80 L Oxygen Delivery 06/09/24 06:51 06/09/24 06:53 06/09/24 06:54 Pulse Rate Blood Pressure Pulse Oximetry 85 L 82 L 98 Oxygen Delivery 06/09/24 06:59 06/09/24 07:00 Pulse Rate 85 Blood Pressure 121/84 Pulse Oximetry 99 Oxygen Delivery Exam Const: General: healthy appearing and alert Orientation/consciousness: patient oriented x3 Resp: Effort & Inspection: normal respiratory effort GI: GI Palp: Yes Soft to palpation, No Tenderness to palpation present (GI) and Yes Other GI palpation findings present (Fundal height 45) Auscultation: other ( heart tones category 1) : External Female Exam: normal external appearance Speculum Exam - Vagina: normal appearance of the vagina and normal vaginal discharge Speculum Exam - Cervix: normal appearance of the cervix Bimanual exam- vagina & uterus: consistency normal Bimanual Exam- Adnexa, other: normal adnexae and No adnexal tenderness Neuro: General: patient oriented x3 Assessment and Plan Assessment and plan (1) 36 to 37 weeks gestation of : Status: Acute (2) Gestational diabetes mellitus (GDM) affecting : Code(s): O24.419 - Gestational diabetes mellitus in , unspecified control Status: Acute (3) Preeclampsia: Code(s): O14.90 - Unspecified pre-eclampsia, unspecified trimester Status: Acute
[2024-06-09 07:17] LABS: Glucose Point of Care 144 mg/dl (65-105)
[2024-06-09] MEDS: FAMOTIDINE 20 MG/2 ML VIAL IV PUSH (07:20)
[2024-06-09] MEDS: ONDANSETRON INJ 4 MG/2 ML VIAL IV PUSH (07:20)
[2024-06-09] MEDS: ceFAZolin 2 GM/D5W 50 ML 2 GM/50 ML BAG IVPB (07:33)
--- NOTE | 2024-06-09 08:36 | P.PCNOB_ITS ---
OB - Delivery Note Procedure Delivery date: 06/09/24 Pre-op diagnosis: Gestational Diabetes (Insulin-requiring), Preeclampsia w/o severe features and Other (Prior shoulder dystocia; intrauterine at 36 and 6 7th weeks) Post-op Diagnosis: Same Induction method: None Delivery monitor: External FHT and External Uterine Prior to decision for section, ACOG/SMFM labor guidelines were considered and discussed with the patient and staff. Decision made to proceed with the section.: Yes Procedure Performed: Primary Primary branch: low cervical, transverse Surgeon: Susan Velarde MD Anesthesia type: Spinal Description of Procedure/Findings: The patient was taken to the operating room and placed under spinal anesthesia in the dorsal supine position with a leftward tilt. Once anesthesia was deemed adequate, she was prepped and draped in the usual sterile fashion. A Pfannenstiel skin incision was made with a scalpel and carried down to the underlying layer with the fascia. The fascia was nicked midline with a scalpel and extended laterally using Garcia scissors. Bovie cautery was used to obtain hemostasis in the subcutaneous tissues. The rectus muscles are in midline and the peritoneum entered with Metzenbaum this was hunting with a Peon. The incision was extended with blunt traction. The Fransico O retractor was placed. Bladder was noted to be very low on the uterus and was left in Situ. A scalpel is used to incise the uterus in a transverse manner until the amniotic cavity was reached. The incision was extended with blunt traction. Clear fluid was noted upon rupture of membranes. The infant's head was delivered and the remainder of the delivered while the purchasing administrative assistant applied fundal pressure. Infant had good color and tone and crying on the abdomen so delayed cord c lamping was performed for 1minute. The 's cord was then clamped and cut and the handed to the waiting OB team. The placenta was removed using manual traction after cord gases and cord blood were drawn. The uterus was cleared of all clots and debris. The uterine incision was closed using 0 Monocryl with a running locked fashion. Same suture was used to imbricate. There is a small hematoma on the left edge of the incision that was stable throughout the surgery. The gutters and cul-de-sac are irrigated. The Fransico O retractor was removed. The incision was again inspected noted to be hemostatic. The fascia is closed using 0 Vicryl in a running fashion. Subcutaneous tissues were irrigated and it couple of additional areas were cauterized for hemostasis. Once hemostasis was and obtained, the skin was closed using 4-0 Vicryl in a subcuticular fashion. Dermaflex was placed over the incision. Sterile bandage was applied due to the skin requiring significant Bovie cautery for hemostasis. Patient received Ancef prior to incision. Sponge, needle, and instrument counts are a correct per the OR staff. The patient is taken to recovery in stable condition. The infant was taken to the nursery for respiratory support Specimen: Yes (Placenta) Estimated Blood Loss: 385 Drains: Yes (Jackman) Packing: No Complications: No immediate complications Condition: Stable Disposition: PACU [place] Baby Date of : 06/09/24 Gestational Age by Date: 36 (08/28) Infant gender: Male Weight (pounds): 9 presentation: vertex position: Right Occiput Anterior Placenta delivery description: Spontaneous Cord Vessel Description: 3 Vessels Narrative: Apgars at the time of this dictation were not calculated by Pediatrics
[2024-06-09] MEDS: OXYTOCIN 30 UNITS/NS 500 ML 30 UNITS/500 ML BAG 125 UNITS IV CONT (09:22)
[2024-06-09] MEDS: fentaNYL CITRATE INJ (*CRX) 100 MCG/2 ML VIAL 25 MCG IV PUSH (10:44)
--- NOTE | 2024-06-09 11:11 | OBPPTRN ---
Patient transferred to post room #290 via stretcher. Support person present. Oriented to unit, room, information board, rooming in, admission packet and security measures. Patient verbalizes understanding.
[2024-06-09] MEDS: ACETAMINOPHEN 325 MG TABLET 650 MG PO ×2 (12:14→18:12)
[2024-06-09] MEDS: MULTIVIT/MIN/PREN/FOL AC/IRON TABLET 1 TAB PO (12:14)
[2024-06-09] MEDS: KETOROLAC 15 MG/ML VIAL (*BKC) IV PUSH ×2 (12:14→18:12)
[2024-06-09] MEDS: DOCUSATE SODIUM 100 MG CAPSULE PO ×2 (12:14→16:40)
[2024-06-09] MEDS: SIMETHICONE 80 MG TAB.CHEW PO ×2 (12:14→16:40)
[2024-06-09] MEDS: HYDROcodone/acetaminophen (*CRX) 10-325 MG TABLET 1 TAB PO (13:00)
[2024-06-09] MEDS: DEXTROSE 5%/0.45% SOD CHL 1,000 ML 125 ML IV CONT (13:37)
--- NOTE | 2024-06-09 16:21 | PC.NURSE ---
Introductions were made, then consulted with patient to assess needs related to . Breast pump was then provided due to baby being transferred to [facility], mother given a hospital breast pump and kit, she has her own breast pump at home to use. Instructions given on cleaning, care, usage, that there should be no pain, pumping schedule for milk production, collection, and storage of human milk. Patient was assessed for correct placement, flange size, to pump for comfort and nipple stretching/stimulation for adequate milk production every 3 hours (8 times in 24 hours) 1-2 times at night. Parents are encouraged to record the pumping schedule on the pumping log provided.?Mother voiced understanding of the education shared along with mom/baby guide and the pump measurement, flange fit handout for additional resource information. Resources provided for inpatient and outpatient services with the mom/baby guide and name written on the communication board. Mother voiced understanding of information and will call if there is a request for assistance. Reported to the Primary RN.
[2024-06-09] MEDS: KCL 20 MEQ/D5/0.45% SOD CHL 1,000 ML 125 ML IV CONT (21:38)
[2024-06-10] MEDS: LIDOCAINE 5% PATCH 1 PATCH TRANSDERM (00:16)
[2024-06-10 00:17] VITALS: BP 97/65; PULSE 66; RESP 18; TEMP 36.5; O2SAT 96
[2024-06-10] MEDS: ACETAMINOPHEN 325 MG TABLET 650 MG PO ×3 (00:17→17:30)
[2024-06-10] MEDS: KETOROLAC 15 MG/ML VIAL (*BKC) IV PUSH ×2 (00:17→05:52)
--- NOTE | 2024-06-10 03:52 | P.DS_ITS ---
DS: Admitting Diagnosis Discharge Date 06/11/24 Admitting Diagnosis IUP 36 6/7 Preeclampsia GDMA2 Prior shoulder dystocia DS: Discharge Diagnosis Discharge Diagnosis (1) Gestational diabetes mellitus (GDM) affecting : Code(s): O24.419 - Gestational diabetes mellitus in , unspecified control Status: Acute (2) Preeclampsia: Code(s): O14.90 - Unspecified pre-eclampsia, unspecified trimester Status: Acute (3) Delivery by section using transverse incision of lower segment of uterus: Code(s): O82 - Encounter for delivery without indication Status: Acute OB - DS: Summary OB Procedures : NST, PIH Mgmt, Ultrasound and Other (Diabetic management) OB Procedures Intrapartum: low cervical, transverse OB Procedures: : None Peripartum Data Infant Delivery Method: Section Laceration Description: None Episiotomy description: None Procedures: Procedures Operation Date: 06/09/24 07:30 Actual Procedure Side Surgeon p Primary Section Susan Velarde MD complications: none Status at Discharge Functional status at discharge: independent ambulation Overall status at discharge: patient is progressing back to baseline Time Spent with Patient Time attestation: Total time spent providing and/or coordinating discharge services: DS: Data Data Completed and Pending Labs on day of discharge: Labs from last 24 hours 06/09/24 07:13 POC Capillary Glucose 144 H Discharge Plan Discharge Attending physician on discharge: Susan Velarde Consulting providers: Zaria Roach; Eric Euceda Discharging Clinician: Susan Velarde Anticipated Discharge Date/Time: 06/11/24 03:53 Patient Disposition: Home, Self-Care Activity: may shower, may drive after 2 weeks and pelvic rest Diet: regular Wound Care Instructions: incision open to air Discharge Instructions: Education: Mom and Baby Guide Given to: Mother Follow-Up: Call your delivering provider's office for an appointment to be seen in: 1 Week Mom and baby should come to the [facility] for the follow-up appointment. Appointment Date/Time: June 14, 2024 at 11:00 am What to expect at your follow-up visit: Blood Pressure Check Physical Assessment Call [phone] if you are unable to keep your appointment time. BREAST CARE: * Wear a snug supportive bra. * For engorgement discomfort: Breast Feeding: * Apply warm moist washcloths * Express milk as needed to relieve engorgement * Wear loose clothing Bottle Feeding: * May apply ice packs * For sore nipples: * Identify correct latch-on * Apply warm moist washcloths before and after nursing * Air dry nipples after nursing * May apply Lansinoh cream to nipples ABDOMINAL INCISION: (if applicable) * Allow incision to air dry * Do NOT use lotions for powders on your incision * When showering, allow soap and water to run over the incision, but do not wash incision EPISIOTOMY/PERINEAL CARE: * Until bleeding stops, use your wagner bottle after urinating * Change your pad frequently throughout the day * You may take sitz baths several times a day (fill your bathtub with warm water and soak for 20 minutes.) Do NOT bathe in the water * No tub baths until seen by your physician - You may shower ACTIVITY: * Rest as much as possible. * Do not exercise or lift anything heavier than your baby (such as laundry or other children.) * Avoid stairs or driving as much as possible. * Do not put anything into the vagina. No douching, tampons, or sexual activity until seen by physician. NOTIFY PHYSICIAN IF YOU HAVE ANY QUESTIONS OR IF ANY OF THE FOLLOWING SYMPTOMS OCCUR: * If your episiotomy or incision becomes red, swollen, or more painful than what you have experienced in the hospital. * If your vaginal bleeding becomes foul smelling. * If your vaginal bleeding becomes more heavy than a period or if your bleeding changes from pink to bright red. However, you may pass an occasional walnut- sized clot once or twice for the first week . * If you experience a sharp, shooting pain in you calves. * If you discover a hard, reddened area on your breast or if you experience flu- like symptoms. DIET: * Eat regular, well-balanced meals. * Drink plenty of fluids daily. If , drink to thirst. Pumping Plan? You are exclusively pumping at discharge. It is important to pump regularly and consistently to help initiate your milk supply. Regular milk removal is necessary for continued milk production. You need to pump at least 8 times every 24 hours. You can use hands on pumping to get better results with pumping and to encourage your breasts to produce more milk. Hands on pumping instructions:? * Massage your breasts before applying the breast pump.? * Pump both breasts at once. Use your hands to massage and compress while you pump.? * Stop pumping when the milk stops flowing? * Massage your breasts again? * End the pumping session by pumping or hand expressing one breast at a time while massaging and compressing your breast. Go back and forth between each breast until the milk stops flowing.? * Allow 25 minutes to complete this routine??? It is important to be sure you have a well-fitted pump flange. Consult your pump manual for recommended flange sizing or consult a professional.?? YOU SHOULD SET YOUR PUMP TO THE HIGHEST COMFORTABLE LEVEL. INCREASE THE SUCTION GRADUALLY UNTIL YOU REACH THE CORRECT SETTING. PUMPING SHOULD NOT HURT.? ? CONSULT YOUR PUMP MANUAL FOR GUIDANCE ON PUMP SETTINGS AND FUNTIONS. MOST PUMPS RECOMMEND 1-2 MINUTES OF THE QUICK ?MASSAGE? MODE, THEN SWITCHING TO THE SLOWER ?EXPRESSION? MODE FOR THE REMAINDER OF THE PUMPING SESSION.?Pump each breast for 10-15 minutes. Pumping will help stimulate your breasts to produce milk.? Follow the collection and storage sheet given to you in the Mom and Baby Guide. Remember to keep track of all feedings/elimination on the blue worksheet provided.? ? Clean your pump parts between each pumping session according to the guidelines in your pump manual. It is recommended that you use a basin that is reserved for washing pump parts that is separate from your sink to prevent contamination. If you are pumping for an ill or , you should disinfect your pump parts once a day by boiling them in hot water for 5 minutes after cleaning.? ? Ways to increase your milk supply:? * Increase frequency of pumping (10-12 times every 24 hours)? * Lots of skin to skin (if infant is able), especially before pumping? * Use warm washcloths before pumping and gentle breast massage before and during pumping? * Reduce stress, relax with music, get plenty of rest, and drink to thirst? * Warm pump flanges with warm water before pumping? * Pump until the milk stops flowing, then pump for 2 more minutes to fully empty the breast? * Pump at least once through the night, milk shouldn?t remain in the breast for longer than 4 hours? * Power pumping: Pump for 15-20 minutes, rest for 10 minutes, pump for 10, rest for 10, pump for 10. Do this routine 1-2 times a day for several days or until you notice an increase in milk supply. Pump normally between power pumping sessions.? ? You may contact the Team at [phone] for questions and appointments.? These discharge instructions have been explained to me and I have received a copy.? Patient Language: Kyrgyz Stand Alone Forms: General Discharge Information Follow-up/Referrals: Susan Velarde MD [Physician] - 1 Week (and 6 wk) Discharge Medications: New hydrocodone-acetaminophen 5-325 mg tablet 1 tablet PO Q4H PRN (Reason: pain) Qty: 20 0RF Continued prenat.vits,lea,xdv-oelh-cattr Tablet 1 tablet PO DAILY ergocalciferol (vitamin D2) 1,250 mcg (50,000 unit) capsule 50,000 unit PO WEEKLY Discontinued Humulin N NPH Insulin KwikPen 100 unit/mL (3 mL) insulin pen 57 unit subcut QPM Date of admission: 06/09/24 05:30 Primary Care Provider: UNKNOWN,DOCTOR Admitting Provider: Susan Velarde Attending physician on admission: Susan Velarde Condition: Stable
[2024-06-10 04:30] VITALS: BP 103/76; PULSE 65; RESP 18; TEMP 36.5; O2SAT 97
[2024-06-10 05:03] LABS: Basophils Percent Auto 0.4 % (0.2-1.2); Eosinophils Absolute Auto 0.2 K/mm3 (0-0.3); Eosinophils Percent Auto 1.8 % (0-4.4); Hemoglobin 11.6 g/dL (12.0-15.0); Immature Granulocyte Absolute 0.05 K/mm3 (0.00-0.031); Immature Granulocyte Percent A 0.5 % (0-0.5); Lymphocytes Absolute Auto 2.85 K/mm3 (0.9-3.2); Lymphocytes Percent Auto 26.1 % (18.3-44.2); Mean Corpuscular HGB Conc 32.2 g/dl (32-36); Mean Platelet Volume 10.4 fl (7.4-10.4); Monocytes Absolute Auto 0.7 K/mm3 (0.1-0.6); Monocytes Percent Auto 6.2 % (2.6-8.5); Neutrophils Absolute Auto 7.1 K/mm3 (1.3-6.7); Platelet Count Result 184 k/mm3 (150-375); Red Blood Count 3.87 M/mm3 (4.2-5.4); Red Cell Distribution Width 13.1 % (11.5-14.5); White Blood Count 10.9 K/mm3 (4.5-10.0)
[2024-06-10 07:50] VITALS: BP 114/61; PULSE 77; RESP 16; TEMP 36.8; O2SAT 100
[2024-06-10] MEDS: DOCUSATE SODIUM 100 MG CAPSULE PO ×2 (08:25→17:30)
[2024-06-10] MEDS: MULTIVIT/MIN/PREN/FOL AC/IRON TABLET 1 TAB PO (08:25)
[2024-06-10] MEDS: SIMETHICONE 80 MG TAB.CHEW PO ×2 (08:25→17:30)
--- NOTE | 2024-06-10 08:32 | P.PNOB_ITS ---
OB - PN: Subj Subjective Date/time seen: 06/10/24 08:32 Patient comments: no complaints and pain well controlled baby status: doing well (sugars stabilized) and NICU OB - PN: Obj Data Labs 06/10/24 04:37 Labs: Laboratory Results - last 24 hr 06/10/24 04:37 WBC 10.9 H RBC 3.87 L Hgb 11.6 L Hct 36.0 L MCV 93.0 MCH 30.0 MCHC 32.2 RDW 13.1 Plt Count 184 MPV 10.4 Immature Gran % (Auto) 0.5 Neut % (Auto) 65.0 Lymph % (Auto) 26.1 Vernon % (Auto) 6.2 Eos % (Auto) 1.8 Baso % (Auto) 0.4 Lymph # (Auto) 2.85 Vernon # (Auto) 0.7 H Eos # (Auto) 0.2 Baso # (Auto) 0.0 Abs Immat Gran (auto) 0.05 H Absolute Neuts (auto) 7.1 H Absolute Nucleated RBC 0.000 Nucleated RBC % 0.0 OB - PN A/P Assessment and Plan (1) Preeclampsia: Code(s): O14.90 - Unspecified pre-eclampsia, unspecified trimester Status: Acute Assessment and Plan: BP's good. I/O's equal Plan day: 1 Comments: can go on pass this afternoon to see infant Time Spent With Patient Time: Total time spent is greater than 50% in coordination of care (as documented) at patient's floor/unit and/or counseling patient: Exam 2 Narrative: inc c/d/i : Bimanual exam- vagina & uterus: other (Uterus firm, nt @U)
--- NOTE | 2024-06-10 10:00 | PC.NURSE ---
Introductions were made and communication board updated. Mother is pumping ( is at [facility]) and denies questions at this time. Discussed services provided at [facility] once she is there with infant and additional support offered at [facility] after discharge. Mother states understanding and will call this RN with any questions or concerns should they arise.
[2024-06-10] MEDS: HYDROcodone/acetaminophen (*CRX) 10-325 MG TABLET 1 TAB PO ×3 (10:34→20:05)
--- NOTE | 2024-06-10 10:50 | PC.NURSE ---
This patient went out on a therapeutic leave pass to visit in NICU.
--- NOTE | 2024-06-10 13:15 | WPDANLDPN2 ---
Anes-Prog Note L&D Date/Time: 06/10/24 13:15 Neuro status: Neuro function grossly intact. Vital Signs: Last Vital Signs Temp 36.8 C 06/10/24 07:50 Pulse 77 06/10/24 07:50 Resp 16 06/10/24 07:50 BP 114/61 06/10/24 07:50 Pulse Ox 100 06/10/24 07:50 O2 Del Method Room Air 06/10/24 07:45 Pain score (VAS): 0 I/O: Intake & Output 06/09/24 06/10/24 06/10/24 23:59 07:59 15:59 Intake Total 2270.0 900 790 Output Total 950 1850 775 Balance 1320.0 -950 15 Patient feedback: Patient satisfied with anesthetic care.
--- NOTE | 2024-06-10 13:15 | WPDANLDNPN2 ---
Anes-Prog Note L&D-Neuraxial Date/Time: 06/10/24 13:15 Patient feedback: Patient satisfied with post-operative pain management.
--- NOTE | 2024-06-10 14:53 | PC.NURSE ---
This patient returned from visiting infant in NICU.
[2024-06-10 15:00] VITALS: BP 124/93; PULSE 91; RESP 18; TEMP 36.6; O2SAT 98
[2024-06-10] MEDS: IBUPROFEN 600 MG TABLET PO (17:30)
[2024-06-10 20:05] VITALS: BP 117/75; PULSE 81; RESP 18; TEMP 36.3; O2SAT 98
[2024-06-11] MEDS: IBUPROFEN 600 MG TABLET PO ×3 (00:06→11:16)
[2024-06-11] MEDS: ACETAMINOPHEN 325 MG TABLET 650 MG PO ×3 (00:08→11:16)
[2024-06-11 00:15] VITALS: BP 117/61; PULSE 78; RESP 18; TEMP 36.2; O2SAT 99
[2024-06-11 05:41] VITALS: BP 125/83; PULSE 76; RESP 18; O2SAT 98
[2024-06-11] MEDS: LIDOCAINE 5% PATCH 1 PATCH TRANSDERM (05:41)
[2024-06-11 08:50] VITALS: BP 125/79; PULSE 85; RESP 16; TEMP 36.5; O2SAT 98
--- NOTE | 2024-06-11 09:15 | PC.NURSE ---
Met with patient regarding pumping and needs. Baby was transferred to the NICU and mom is pumping with the hospital pump. She is discouraged that she hasn't gotten much volume yet. Encouraged her to be consistent and patient. She doesn't have any questions regarding pumping. She has her own breast pump at home.
[2024-06-11] MEDS: DOCUSATE SODIUM 100 MG CAPSULE PO (09:21)
[2024-06-11] MEDS: SIMETHICONE 80 MG TAB.CHEW PO (09:21)
[2024-06-11] MEDS: MULTIVIT/MIN/PREN/FOL AC/IRON TABLET 1 TAB PO (09:21)
--- NOTE | 2024-06-11 09:42 | P.PNOB_ITS ---
OB - PN: Subj Subjective Date/time seen: 06/11/24 09:42 Patient comments: no complaints and pain well controlled baby status: doing well and bottle feeding well (with breast milk; NG out; weaning iv) OB - PN: Obj Data Labs 06/10/24 04:37 OB - PN A/P Plan day: 2 Plan: routine care, discharge home and other (follow up 1 week) Time Spent With Patient Time: Total time spent is greater than 50% in coordination of care (as documented) at patient's floor/unit and/or counseling patient: Exam 2 Narrative: inc c/d/i : Bimanual exam- vagina & uterus: other (Uterus firm, nt @U)
[2024-06-11] MEDS: HYDROcodone/acetaminophen (*CRX) 10-325 MG TABLET 1 TAB PO (09:52)
== END 2024-06-11 12:10 | disposition home or self-care (01) | DRG 540 ==
LOC: ANHLDR 08:43 → ANHOB2 11:22
PROVIDERS: Admitting Provider Obstetrics & Gynecology Gynecology; Visit Provider Obstetrics & Gynecology Gynecology
PROC: 10D00Z1 Extraction of Products of Conception, Low, Open Approach (ICD-10-PCS; CPT 59514; principal; 2024-06-09 07:30)
DX: O24.424 Gestational diabetes mellitus in childbirth, insulin controlled (principal); O14.94 Unspecified pre-eclampsia, complicating childbirth; O14.04 Mild to moderate pre-eclampsia, complicating childbirth; Z3A.36 36 weeks gestation of pregnancy; Z37.0 Single live birth; Z87.891 Personal history of nicotine dependence
CPT/HCPCS: 36415; 82948; 85025; A9270; J0690; J1885; J2274; J2371; J2405; J2590; J3010; J3480; J7120